=== PATIENT | male | born 1960 | race Caucasian/White ===

== ENCOUNTER 2018-08-14 16:23 | Inpatient (IN) | payer MEDICARE, BC ==
[~2018-08-14] VITALS: Ht 182.9 cm; Wt 66.7 kg
[2018-08-14 16:44] VITALS: BP 123/82
[2018-08-14] MEDS ORDERED: ACETAMINOPHEN 325 MG TABLET PO PRN (17:45)
[2018-08-14] MEDS ORDERED: METHYL SALICYLATE/MENTHOL TOPICAL OINTMENT 29GM TUBE. TP PRN (17:45)
[2018-08-14] MEDS ORDERED: MAG HYDROX/AL HYDROX/SIMETH 30 ML ORAL.SUSP PO PRN (17:45)
[2018-08-14] MEDS ORDERED: DIVA125C2 PO (17:46)
[2018-08-14] MEDS ORDERED: QUET25TA5 PO (17:46)
[2018-08-14] MEDS ORDERED: OLAN5TAB5 PO (17:46)
[2018-08-14] MEDS ORDERED: OLAN5TAB3 PO (17:46)
[2018-08-14] MEDS ORDERED: OLAN2.5T3 PO (17:46)
[2018-08-14] MEDS ORDERED: MEMA10TA PO (17:46)
[2018-08-14] MEDS ORDERED: FLUO40CA2 PO (17:46)
[2018-08-14] MEDS ORDERED: QUEtiapine 25 MG TABLET. PO PRN (18:30)
[2018-08-14] MEDS ORDERED: OLANZapine 2.5 MG TABLET PO PRN (18:30)
[2018-08-14 19:50] LABS: VAL ACID 21 mcg/mL (50-100)
--- NOTE | 2018-08-14 20:58 | HP ---
ADMIT DATE: 08/14/2018 This is a late entry for 08/14/2018 and covers elements not covered in my initial note. REASON FOR ADMISSION: I met with the patient in the evening. Discussed with nursing staff several times earlier in the day after the patient was referred to us from [facility] Emergency Room where he presented, brought in by the family on account of worsening confusion, being physically aggressive with the son and daughter and . has been isolating herself in the home office because he is fearing he might attack her. He was urinating in inappropriate places. There is a [id number] grandson in the home and he has been aggressive with the child as well. He has been defecating on the floor. He was physically aggressive to the home health staff. Symptoms have been worsening for about 2 weeks. He has appeared somewhat obsessive, repetitive, trying to button/unbutton his pants at home, totally disorganized and has failed outpatient psychiatric interventions with Dr. Bui and then referred to us for inpatient psychiatric stabilization. The patient's initially called us directly because the patient was totally unmanageable in the home and she was crying, tearful on the phone. Staff directed her to take the patient to the ER in [place] that where we got in referral from. CHIEF COMPLAINT: "No." The patient is totally confused, disoriented. He is unable to respond to any specific questions asked of him. HISTORY OF PRESENT ILLNESS: The patient has a history of alcohol abuse and dementia, possibly consequent to this and Alzheimer, vascular. Family have attempted to maintain him at home, but for the past couple of weeks, this has been totally unmanageable. He has had sleep and appetite changes, increasing agitation, aggression, mood vacillation. No active suicidal or homicidal ideation. No clear symptoms of bipolar disorder. PAST PSYCHIATRIC HISTORY: As above. MEDICAL HISTORY: Positive for actinic keratosis, adenomatous colon polyp, history of alcohol abuse, former smoker, atherosclerotic cardiovascular disease, atherosclerotic vascular disease, intraorbital hemorrhoids, COPD, emphysema, malignant melanoma of the ankle, mixed hyperlipidemia, panlobular emphysema, Parkinson's disease, vitamin D deficiency. PAST SURGICAL HISTORY: Positive for appendectomy, lymph node dissection, vasectomy. Accu-Cheks: None. Diet: Regular. Takes medications crushed, ambulates independently. UA on 08/13/2018 at his primary care physician's office was negative. ALLERGIES: RAPAFLO. CODE STATUS: DNR. FAMILY HISTORY: Noncontributory. SOCIAL HISTORY: The patient lives at home with his and family and home health services, which have failed. Alcohol abuse history as noted above. No physical, sexual or elder abuse history is noted. Not known to be a perpetrator. REACTION TO HOSPITALIZATION: The patient oblivious of this. ASSETS: Supportive family. MENTAL STATUS EXAMINATION: The patient is oriented to himself. Insight, judgment, recent and remote memory, attention, concentration, fund of knowledge poor, consistent with his diagnosis. He is quite disorganized, oblivious of his surroundings, repeatedly buttoning and unbuttoning his pants, walking away, oblivious of what he was doing. LABORATORY DATA: Reviewed. IMPRESSION: Major neurocognitive disorder, possibly secondary to alcohol and Lewy body, Alzheimer, vascular with delusion, depression, behavioral disturbance; anxiety disorder, unspecified; obsessive compulsive disorder, impulse control disorder, unspecified. Rest unchanged from above. PLAN: Admit to geropsychiatry unit at [facility]. I will see the patient daily individually from a psychiatric standpoint, medical followup with Dr. Gaitan. Continue the patient on his current psychotropics, observe baseline. Change the Prozac to Luvox 25 mg a day for 3 days, then 50 mg a day. Maintain Depakote 125 t.i.d., Namenda 10 b.i.d., Zyprexa 5 mg at bedtime, Seroquel 25 mg t.i.d., but I would like to taper and stop this to avoid using 2 atypicals in combination. He is also on Zyprexa p.r.n. We will adjust further as clinically indicated. Estimated length of stay is 10-12 days. DISPOSITION PLAN: Possible to nursing facility. MELECIO PEREZ MD DR: DIANA/ethan JOB#: [id number] / [id number]
[2018-08-14] MEDS: DIVALPROEX 125 MG CAP.SPRINK PO SCH (21:26)
[2018-08-14] MEDS: OLANZapine 5 MG TABLET PO SCH (21:26)
[2018-08-14] MEDS: MEMANTINE 10 MG TABLET. PO SCH (21:26)
--- NOTE | 2018-08-14 22:20 | PDOC ---
Exam Note: Idris Note: Please also refer to the separate dictated note~for this date of service dictated separately.~Patient seen individually. Discussed the patient with Nursing staff reviewed the chart.~Reviewed interim history and current functioning. Reviewed vital signs,~Labs/ Radiology~and current medications noted below. Continue current treatment with the changes noted in the dictated addendum note Assessment: Vital Signs: Vital Signs Date Time Temp Pulse Resp B/P (MAP) Pulse Ox O2 Delivery O2 Flow Rate FiO2 08/14/18 16:44 98.0 68 18 123/82 (96) 99 Labs: Laboratory Tests Test 08/14/18 19:20 Valproic Acid Level 21 mcg/mL (50-100) L Valproic Acid Last Dose Date 08/14/18 Valproic Acid Last Dose Time 2100 Current Medications: Meds: Current Medications Acetaminophen (Tylenol) 650 mg PRN Q6HRS PRN PO PAIN / TEMP; Start 08/14/18 at 17:45 Multi-Ingredient Ointment (Analgesic [place]) 1 josh PRN QID PRN TP MUSCLE PAIN; Start 08/14/18 at 17:45 Al Hydroxide/Mg Hydroxide (Mylanta Plus Xs) 15 ml PRN AFTMEALHC PRN PO DYSPEPSIA; Start 08/14/18 at 17:45 Magnesium Hydroxide (Milk Of Magnesia) 2,400 mg PRN QHS PRN PO CONSTIPATION; Start 08/14/18 at 17:45 Olanzapine (ZyPREXA ZYDIS) 2.5 mg PRN Q2HR PRN PO ANXIETY / AGITATION 1ST CHOICE; Start 08/14/18 at 18:00 Divalproex Sodium (Depakote Sprinkles) 125 mg TID PO Last administered on at 21:26; Start 08/14/18 at 21:00 Fluoxetine HCl (PROzac) 40 mg DAILY PO ; Start 08/15/18 at 09:00; Stop 08/15/18 at 09:00; Status DC Memantine (Namenda) 10 mg BID PO Last administered on 08/14/18at 21:26; Start 08/14/18 at 21:00 Olanzapine (ZyPREXA) 2.5 mg PRN BID PRN PO PSYCHOSIS/AGITATION; Start 08/14/18 at 18:30 Olanzapine (ZyPREXA) 5 mg QHS PO Last administered on 08/14/18at 21:26; Start 08/14/18 at 21:00 Quetiapine Fumarate (SEROquel) 25 mg PRN TID PRN PO ANXIETY/AGITATION 2ND CHOICE; Start 08/14/18 at 18:30 Fluvoxamine Maleate (Luvox) 25 mg QHS PO Last administered on 08/14/18at 21:24; Start 08/14/18 at 21:00; Stop 08/16/18 at 21:01 Fluvoxamine Maleate (Luvox) 50 mg QHS PO ; Start 08/17/18 at 21:00 Active Scripts Active Reported Zyprexa Zydis (Olanzapine) 5 Mg Tab.rapdis 2.5 Mg PO PRN Q2HR PRN Seroquel (Quetiapine Fumarate) 25 Mg Tablet 1 Tab PO TID PRN Zyprexa (Olanzapine) 2.5 Mg Tablet 1 Tab PO BID PRN Zyprexa (Olanzapine) 5 Mg Tablet 1 Tab PO QHS Namenda (Memantine Hcl) 10 Mg Tablet 1 Tab PO BID Fluoxetine Hcl 40 Mg Capsule 1 Cap PO DAILYWBKFT Depakote Sprinkle (Divalproex Sodium) 125 Mg Cap.sprink 125 Mg PO TID I have reviewed the current psychotropics carefully including drug interactions. Risk benefit ratio favors no change other than as noted in my dictated progress note. Diagnosis: Problems: (1) Anxiety disorder (2) Alcohol-induced persisting dementia (3) Dementia in Alzheimer's disease with delusions (4) Dementia in Alzheimer's disease with depression (5) Dementia, vascular, with delusions (6) Dementia, vascular, with depression (7) Impulse control disorder MELECIO PEREZ MD Aug 14, 2018 22:19
[2018-08-15 05:58] VITALS: BP 121/75
[2018-08-15] MEDS: MEMANTINE 10 MG TABLET. PO SCH ×2 (07:49→19:44)
[2018-08-15] MEDS: DIVALPROEX 125 MG CAP.SPRINK PO SCH ×3 (07:49→19:43)
[2018-08-15 08:22] LABS: BASO % 1 % (0-3); EOS # 0.1 x10^3/uL (0.0-0.7); EOS % 1 % (0-3); HEMATOCRIT 39.8 % (39.0-53.0); LYMPH # 0.7 x10^3/uL (1.0-4.8); LYMPH % 12 % (24-48); MEAN CORPUSCULAR HEMOGLOBIN 29 pg (25-35); MEAN CORPUSCULAR HGB CONC 33 g/dL (31-37); MEAN CORPUSCULAR VOLUME 90 fL (79-100); MONO # 0.7 x10^3/uL (0.0-1.1); MONO % 10 % (0-9); NEUT % 77 % (31-73); PLATELET COUNT 281 x10^3/uL (140-400); RED BLOOD COUNT 4.42 x10^6/uL (4.30-5.70); RED CELL DISTRIBUTION WIDTH 13.4 % (11.5-14.5); WHITE BLOOD COUNT 6.5 x10^3/uL (4.0-11.0)
[2018-08-15 08:39] LABS: ALBUMIN 3.7 g/dL (3.4-5.0); ALBUMIN/GLOBULIN RATIO 1.1 (1.0-1.7); CALCIUM 9.5 mg/dL (8.5-10.1); CREATININE 1.2 mg/dL (0.7-1.3); GFR 61.8; MAGNESIUM 2.1 mg/dL (1.8-2.4); POTASSIUM 3.9 mmol/L (3.5-5.1); TOTAL BILIRUBIN 0.6 mg/dL (0.2-1.0)
[2018-08-15] MEDS ORDERED: FLUoxetine HCL 20 MG CAPSULE PO SCH (09:00)
[2018-08-15 10:13] LABS: THYROID STIM HORMONE (TSH) 2.486 uIU/mL (0.358-3.740)
--- NOTE | 2018-08-15 13:38 | CONS ---
DATE OF CONSULTATION: 08/15/2018 REASON FOR CONSULTATION: Medical management. HISTORY OF PRESENT ILLNESS: The patient is a 58-year-old male patient who was seen originally at [facility] Emergency Room, where he presented with worsening confusion and being physically aggressive with his son, daughter and . has been isolating herself in the home office because she is feeling he might attack her. He was urinating in an inappropriate places. There is a [id number] grandson at the home and he has an aggressive with the child as well, has been defecating on the floor, was aggressive with home health staff. Symptoms have been worsening for about 2 weeks. He seemed somewhat obsessive with repetitive movement trying to button and unbutton his parents at home totally disorganized and has failed outpatient psychiatric intervention with Dr. Bui and therefore, he was [facility]. The patient is extremely demented, very disoriented and disorganized, pacing back and forth in the corridor of the hospital, does not give any useful information. Medically, the patient has multiple medical problems including hypertension and hyperlipidemia. He has malignant melanoma of the ankle, atherosclerotic vascular disease, COPD, and actinic keratosis, adenomatous colon polyps. PAST SURGICAL HISTORY: Significant for appendectomy and lymph node dissection as well as vasectomy. FAMILY HISTORY: Positive for arthritis and vision loss in his mother, asthma and allergy in his brother's, scoliosis in his daughter and ADHD in his son. SOCIAL HISTORY: He is , lives with his . He is a former smoker, used to smoke half-a-pack a day, smoked for 40 years, quit smoking on 05/27/2017. He never used smokeless tobacco. He apparently has a history of alcohol abuse, although apparently stopped drinking for a while since she was diagnosed with dementia. He does not use any drugs. ALLERGIES: HE IS ALLERGIC TO SILODOSIN. MEDICATIONS: He is currently on following medications: He is on divalproex sodium 125 mg 3 times a day, fluoxetine 40 mg daily with breakfast, olanzapine 5 mg at bedtime, olanzapine 2.5 mg twice a day p.r.n. for psychosis, olanzapine 2.5 mg every 2 hours for anxiety and agitation, Quetiapine fumarate 25 mg 3 times a day and Namenda 10 mg twice a day. REVIEW OF SYSTEMS: Unobtainable. PHYSICAL EXAMINATION: GENERAL: On examining him, the patient looked well and was clearly in no apparent respiratory distress. There was no pallor, jaundice, cyanosis, or thyromegaly. No jugular venous distension. No limb edema. VITAL SIGNS: His heart rate was 60, blood pressure was 121/75, temperature was 97.7, respiratory rate was 20, and oxygen saturation was 96%. HEAD, EYES, EARS, NOSE AND THROAT: Showed normocephalic, atraumatic. NECK: Supple. HEART: Showed normal first and second heart sounds. No gallop, rub or murmur. CHEST: Clear to auscultation. No crepitation or rhonchi. ABDOMEN: Distended, soft and nontender. NEUROLOGIC: He is extremely demented, very disorganized; however, all his cranial nerves are intact. EXTREMITIES: He moves extremities without difficulty. He ambulates without assistance or assistive devices. LABORATORY DATA: Showed his white cell count is 6500, hemoglobin 13, hematocrit 39, MCV 90 and platelet count 281,000 with normal manual differential. His chemistry showed a serum sodium 145, potassium 3.9, chloride 108, bicarbonate 26, anion gap of 11, BUN 30, creatinine 1.2, estimated GFR was 62 mL per minute. His glucose was 97, calcium was 9.5, magnesium was 2.1. Serum iron 45, TIBC was 273, iron saturation was 16%. Total bilirubin, AST, ALT, alkaline phosphatase were normal. Total protein 7, albumin 3.7. His serum triglycerides were 43, total cholesterol was 206, LDL cholesterol 142, VLDL was 8, and HDL cholesterol was 56, the ratio was 3 and TSH was 2.486, which is well within therapeutic range and valproic acid was only 21 mcg/mL definitely subtherapeutic as the normal therapeutic range of 50-100. IMPRESSION: In summary, this is a 58-year-old male patient, who obviously was admitted on account of worsening confusion, being physically aggressive with his son, daughter and . His has been isolating herself in the home office because she is feeling he might attack her. He was urinating in inappropriate places and he was also defecating in inappropriate places. He was aggressive to his [id number] grandson and was admitted to this unit for inpatient psychiatric stabilization. Medically, the patient seems to be stable. His vital signs are normal. All his lab works are surprisingly well within normal range. Given that history of alcoholism, I will add prothrombin time and ammonia to check his liver function tests, otherwise he seems to be medically stable. I would continue all his current medication for the time being. I will follow him closely and follow all the labs that are still pending at the time of this dictation. Thank you, Dr. Kilgore for allowing me to participate in the care of this patient. GINA DAWSON MD DR: ISATU/ethan JOB#: [id number] / [id number]
[2018-08-15 15:58] VITALS: BP 125/74
[2018-08-15] MEDS: OLANZapine 5 MG TABLET PO SCH (19:44)
[2018-08-15] MEDS: traZODone 50 MG TABLET. PO PRN (19:45)
[2018-08-15] MEDS: MIRTAZAPINE 7.5 MG TABLET. PO SCH (19:45)
--- NOTE | 2018-08-15 22:22 | PDOC ---
Exam Note: Idris Note: Please also refer to the separate dictated note~for this date of service dictated separately.~Patient seen individually. Discussed the patient with Nursing staff reviewed the chart.~Reviewed interim history and current functioning. Reviewed vital signs,~Labs/ Radiology~and current medications noted below. Continue current treatment with the changes noted in the dictated addendum note Assessment: Vital Signs: Vital Signs Date Time Temp Pulse Resp B/P (MAP) Pulse Ox O2 Delivery O2 Flow Rate FiO2 08/15/18 15:58 98.7 78 20 125/74 (91) 98 Room Air I&O Intake and Output 08/15/18 07:01 Intake Total 360 ml Balance 360 ml Intake Oral 360 ml Labs: Laboratory Tests Test 08/15/18 08:08 White Blood Count 6.5 x10^3/uL (4.0-11.0) Red Blood Count 4.42 x10^6/uL (4.30-5.70) Hemoglobin 13.0 g/dL (13.0-17.5) Hematocrit 39.8 % (39.0-53.0) Mean Corpuscular Volume 90 fL (79-100) Mean Corpuscular Hemoglobin 29 pg (25-35) Mean Corpuscular Hemoglobin Concent 33 g/dL (31-37) Red Cell Distribution Width 13.4 % (11.5-14.5) Platelet Count 281 x10^3/uL (140-400) Neutrophils (%) (Auto) 77 % (31-73) H Lymphocytes (%) (Auto) 12 % (24-48) L Monocytes (%) (Auto) 10 % (0-9) H Eosinophils (%) (Auto) 1 % (0-3) Basophils (%) (Auto) 1 % (0-3) Neutrophils # (Auto) 5.0 x10^3uL (1.8-7.7) Lymphocytes # (Auto) 0.7 x10^3/uL (1.0-4.8) L Monocytes # (Auto) 0.7 x10^3/uL (0.0-1.1) Eosinophils # (Auto) 0.1 x10^3/uL (0.0-0.7) Basophils # (Auto) 0.0 x10^3/uL (0.0-0.2) Sodium Level 145 mmol/L (136-145) Potassium Level 3.9 mmol/L (3.5-5.1) Chloride Level 108 mmol/L (98-107) H Carbon Dioxide Level 26 mmol/L (21-32) Anion Gap 11 (6-14) Blood Urea Nitrogen 30 mg/dL (8-26) H Creatinine 1.2 mg/dL (0.7-1.3) Estimated GFR (Cockcroft-Gault) 61.8 BUN/Creatinine Ratio 25 (6-20) H Glucose Level 97 mg/dL (70-99) Calcium Level 9.5 mg/dL (8.5-10.1) Magnesium Level 2.1 mg/dL (1.8-2.4) Iron Level 45 ug/dL (65-175) L Total Iron Binding Capacity 273 ug/dL (250-450) Iron Saturation 16 % (15-34) Total Bilirubin 0.6 mg/dL (0.2-1.0) Aspartate Amino Transferase (AST) 32 U/L (15-37) Alanine Aminotransferase (ALT) 39 U/L (16-63) Alkaline Phosphatase 52 U/L (46-116) Total Protein 7.0 g/dL (6.4-8.2) Albumin 3.7 g/dL (3.4-5.0) Albumin/Globulin Ratio 1.1 (1.0-1.7) Triglycerides Level 43 mg/dL (0-150) Cholesterol Level 206 mg/dL (0-200) H LDL Cholesterol, Calculated 142 mg/dL (0-100) H VLDL Cholesterol, Calculated 8 mg/dL (0-40) Non-HDL Cholesterol Calculated 150 mg/dL (0-129) H HDL Cholesterol 56 mg/dL (40-60) Cholesterol/HDL Ratio 3.0 Thyroid Stimulating Hormone (TSH) 2.486 uIU/mL (0.358-3.740) Thyroxine (T4) 4.0 ug/dL (4.5-12.0) L Total Triiodothyronine (TT3) 78 ng/dL (71-180) Current Medications: Meds: Current Medications Acetaminophen (Tylenol) 650 mg PRN Q6HRS PRN PO PAIN / TEMP; Start 08/14/18 at 17:45 Multi-Ingredient Ointment (Analgesic [place]) 1 josh PRN QID PRN TP MUSCLE PAIN; Start 08/14/18 at 17:45 Al Hydroxide/Mg Hydroxide (Mylanta Plus Xs) 15 ml PRN AFTMEALHC PRN PO DYSPEPSIA; Start 08/14/18 at 17:45 Magnesium Hydroxide (Milk Of Magnesia) 2,400 mg PRN QHS PRN PO CONSTIPATION; Start 08/14/18 at 17:45 Olanzapine (ZyPREXA ZYDIS) 2.5 mg PRN Q2HR PRN PO ANXIETY / AGITATION 1ST CHOICE Last administered on 08/15/18 10:11; Start 08/14/18 at 18:00 Divalproex Sodium (Depakote Sprinkles) 125 mg TID PO Last administered on 19:43; Start 08/14/18 at 21:00 Fluoxetine HCl (PROzac) 40 mg DAILY PO ; Start 08/15/18 at 09:00; Stop 08/15/18 at 09:00; Status DC Memantine (Namenda) 10 mg BID PO Last administered on 08/15/18 19:44; Start 08/14/18 at 21:00 Olanzapine (ZyPREXA) 2.5 mg PRN BID PRN PO PSYCHOSIS/AGITATION; Start 08/14/18 at 18:30 Olanzapine (ZyPREXA) 5 mg QHS PO Last administered on 08/15/18 19:44; Start 08/14/18 at 21:00 Quetiapine Fumarate (SEROquel) 25 mg PRN TID PRN PO ANXIETY/AGITATION 2ND CHOICE; Start 08/14/18 at 18:30 Fluvoxamine Maleate (Luvox) 25 mg QHS PO Last administered on 08/15/18 20:07; Start 08/14/18 at 21:00; Stop 08/16/18 at 21:01 Fluvoxamine Maleate (Luvox) 50 mg QHS PO ; Start 08/17/18 at 21:00 Mirtazapine (Remeron) 7.5 mg QHS PO Last administered on 08/15/18 19:45; Start 08/15/18 at 21:00 Trazodone HCl (Desyrel) 50 mg PRN QHS PRN PO INSOMNIA, MAY REPEAT X1 Last administered on 08/15/18 19:45; Start 2/3/19 at 19:00 Active Scripts Active Reported Zyprexa Zydis (Olanzapine) 5 Mg Tab.rapdis 2.5 Mg PO PRN Q2HR PRN Seroquel (Quetiapine Fumarate) 25 Mg Tablet 1 Tab PO TID PRN Zyprexa (Olanzapine) 2.5 Mg Tablet 1 Tab PO BID PRN Zyprexa (Olanzapine) 5 Mg Tablet 1 Tab PO QHS Namenda (Memantine Hcl) 10 Mg Tablet 1 Tab PO BID Fluoxetine Hcl 40 Mg Capsule 1 Cap PO DAILYWBKFT Depakote Sprinkle (Divalproex Sodium) 125 Mg Cap.sprink 125 Mg PO TID I have reviewed the current psychotropics carefully including drug interactions. Risk benefit ratio favors no change other than as noted in my dictated progress note. Diagnosis: Problems: (1) Anxiety disorder (2) Alcohol-induced persisting dementia (3) Dementia in Alzheimer's disease with delusions (4) Dementia in Alzheimer's disease with depression (5) Dementia, vascular, with delusions (6) Dementia, vascular, with depression (7) Impulse control disorder MELECIO PEREZ MD Aug 15, 2018 22:21
[2018-08-15 23:09] LABS: HEMOGLOBIN A1C 5.5 % (4.8-5.6)
[2018-08-16] MEDS: traZODone 50 MG TABLET. PO PRN (00:20)
[2018-08-16 06:05] VITALS: BP 90/60
[2018-08-16] MEDS: DIVALPROEX 125 MG CAP.SPRINK PO SCH ×3 (07:40→21:21)
[2018-08-16] MEDS: MEMANTINE 10 MG TABLET. PO SCH ×2 (07:40→21:27)
[2018-08-16] MEDS: MIRTAZAPINE 7.5 MG TABLET. PO SCH (21:20)
[2018-08-16] MEDS: OLANZapine 5 MG TABLET PO SCH (21:20)
--- NOTE | 2018-08-16 22:26 | PN ---
DATE: 08/15/2018 This late entry for 08/15/2018 covers elements not covered in my initial note. SUBJECTIVE: I met with the patient in the evening. Overall, the patient remains confused, did not sleep at all previous night, has been pacing, wandering into other patient's rooms. REVIEW OF SYSTEMS: No CV, , pulmonary, eye, ENT system symptoms on review. Reliability poor. MENTAL STATUS EXAM: Oriented to himself. Insight, judgment, recent and remote memory, attention, concentration, fund of knowledge poor, consistent with his diagnosis. IMPRESSION: Major neurocognitive disorder, multifactorial secondary to alcohol, possibly Lewy body, Alzheimer, vascular with delusion, depression, behavioral disturbance; anxiety disorder, unspecified; impulse control disorder, unspecified. PLAN: Start Remeron 7.5 mg at bedtime, trazodone 50 mg at bedtime, november repeat x 1 for insomnia p.r.n. Maintain Depakote, Prozac, Namenda, Zyprexa scheduled and p.r.n. and Seroquel at current dosage. Prozac has been changed to Luvox for his obsessive thought processes. We will adjust as clinically indicated. MELECIO PEREZ MD DR: DIANA/ethan JOB#: [id number] / [id number]
--- NOTE | 2018-08-16 22:28 | PDOC ---
Exam Note: Idris Note: Please also refer to the separate dictated note~for this date of service dictated separately.~Patient seen individually. Discussed the patient with Nursing staff reviewed the chart.~Reviewed interim history and current functioning. Reviewed vital signs,~Labs/ Radiology~and current medications noted below. Continue current treatment with the changes noted in the dictated addendum note Assessment: Vital Signs: Vital Signs Date Time Temp Pulse Resp B/P (MAP) Pulse Ox O2 Delivery O2 Flow Rate FiO2 08/16/18 06:05 97.6 86 18 90/60 (70) 96 08/15/18 15:58 Room Air I&O Intake and Output 08/16/18 07:01 Intake Total 840 ml Balance 840 ml Intake Oral 840 ml Labs: Laboratory Tests Test 08/16/18 13:15 Prothrombin Time 10.3 SEC (9.4-11.4) Prothrombin Time INR 1.0 (0.9-1.1) Ammonia 29 mcmol/L (11-34) Current Medications: Meds: Current Medications Acetaminophen (Tylenol) 650 mg PRN Q6HRS PRN PO PAIN / TEMP; Start 08/14/18 at 17:45 Multi-Ingredient Ointment (Analgesic [place]) 1 josh PRN QID PRN TP MUSCLE PAIN; Start 08/14/18 at 17:45 Al Hydroxide/Mg Hydroxide (Mylanta Plus Xs) 15 ml PRN AFTMEALHC PRN PO DYSPEPSIA; Start 08/14/18 at 17:45 Magnesium Hydroxide (Milk Of Magnesia) 2,400 mg PRN QHS PRN PO CONSTIPATION; Start 08/14/18 at 17:45 Olanzapine (ZyPREXA ZYDIS) 2.5 mg PRN Q2HR PRN PO ANXIETY / AGITATION 1ST CHOICE Last administered on 08/15/18at 23:23; Start 08/14/18 at 18:00 Divalproex Sodium (Depakote Sprinkles) 125 mg TID PO Last administered on at 13:57; Start 08/14/18 at 21:00; Stop 08/16/18 at 16:47; Status DC Fluoxetine HCl (PROzac) 40 mg DAILY PO ; Start 08/15/18 at 09:00; Stop 08/15/18 at 09:00; Status DC Memantine (Namenda) 10 mg BID PO Last administered on 08/16/18at 21:27; Start 08/14/18 at 21:00 Olanzapine (ZyPREXA) 2.5 mg PRN BID PRN PO PSYCHOSIS/AGITATION; Start 08/14/18 at 18:30 Olanzapine (ZyPREXA) 5 mg QHS PO Last administered on 08/16/18at 21:20; Start 08/14/18 at 21:00 Quetiapine Fumarate (SEROquel) 25 mg PRN TID PRN PO ANXIETY/AGITATION 2ND CHOICE; Start 08/14/18 at 18:30 Fluvoxamine Maleate (Luvox) 25 mg QHS PO Last administered on 08/16/18at 21:20; Start 08/14/18 at 21:00; Stop 08/16/18 at 21:01; Status DC Fluvoxamine Maleate (Luvox) 50 mg QHS PO ; Start 08/17/18 at 21:00 Mirtazapine (Remeron) 7.5 mg QHS PO Last administered on 08/16/18at 21:20; Start 08/15/18 at 21:00 Trazodone HCl (Desyrel) 50 mg PRN QHS PRN PO INSOMNIA, MAY REPEAT X1 Last administered on 08/16/18at 00:20; Start 08/15/18 at 19:00 Divalproex Sodium (Depakote Sprinkles) 250 mg BIDWMEALS PO ; Start 08/17/18 at 08 :00 Active Scripts Active Reported Zyprexa Zydis (Olanzapine) 5 Mg Tab.rapdis 2.5 Mg PO PRN Q2HR PRN Seroquel (Quetiapine Fumarate) 25 Mg Tablet 1 Tab PO TID PRN Zyprexa (Olanzapine) 2.5 Mg Tablet 1 Tab PO BID PRN Zyprexa (Olanzapine) 5 Mg Tablet 1 Tab PO QHS Namenda (Memantine Hcl) 10 Mg Tablet 1 Tab PO BID Fluoxetine Hcl 40 Mg Capsule 1 Cap PO DAILYWBKFT Depakote Sprinkle (Divalproex Sodium) 125 Mg Cap.sprink 125 Mg PO TID I have reviewed the current psychotropics carefully including drug interactions. Risk benefit ratio favors no change other than as noted in my dictated progress note. Diagnosis: Problems: (1) Anxiety disorder (2) Alcohol-induced persisting dementia (3) Dementia in Alzheimer's disease with delusions (4) Dementia in Alzheimer's disease with depression (5) Dementia, vascular, with delusions (6) Dementia, vascular, with depression (7) Impulse control disorder MELECIO PEREZ MD Aug 16, 2018 22:28
[2018-08-17 06:11] VITALS: BP 102/51
[2018-08-17] MEDS: DIVALPROEX 125 MG CAP.SPRINK PO SCH ×2 (07:54→17:49)
[2018-08-17] MEDS: MEMANTINE 10 MG TABLET. PO SCH ×2 (07:55→20:09)
[2018-08-17] MEDS: MAGNESIUM HYDROXIDE 2,400 MG/30 ML ORAL.SUSP. PO PRN (16:33)
[2018-08-17] MEDS: MIRTAZAPINE 7.5 MG TABLET. PO SCH (20:09)
[2018-08-17] MEDS: OLANZapine 5 MG TABLET PO SCH (20:09)
--- NOTE | 2018-08-17 22:39 | PDOC ---
Exam Note: Idris Note: Please also refer to the separate dictated note~for this date of service dictated separately.~Patient seen individually. Discussed the patient with Nursing staff reviewed the chart.~Reviewed interim history and current functioning. Reviewed vital signs,~Labs/ Radiology~and current medications noted below. Continue current treatment with the changes noted in the dictated addendum note Assessment: Vital Signs: Vital Signs Date Time Temp Pulse Resp B/P (MAP) Pulse Ox O2 Delivery O2 Flow Rate FiO2 08/17/18 06:11 97.4 52 20 102/51 (68) 95 08/16/18 21:00 Room Air I&O Intake and Output 08/17/18 07:01 Intake Total 120 ml Balance 120 ml Intake Oral 120 ml Current Medications: Meds: Current Medications Acetaminophen (Tylenol) 650 mg PRN Q6HRS PRN PO PAIN / TEMP; Start 08/14/18 at 17:45 Multi-Ingredient Ointment (Analgesic [place]) 1 josh PRN QID PRN TP MUSCLE PAIN; Start 08/14/18 at 17:45 Al Hydroxide/Mg Hydroxide (Mylanta Plus Xs) 15 ml PRN AFTMEALHC PRN PO DYSPEPSIA; Start 08/14/18 at 17:45 Magnesium Hydroxide (Milk Of Magnesia) 2,400 mg PRN QHS PRN PO CONSTIPATION Last administered on 08/17/18at 16:33; Start 08/14/18 at 17:45 Olanzapine (ZyPREXA ZYDIS) 2.5 mg PRN Q2HR PRN PO ANXIETY / AGITATION 1ST CHOICE Last administered on 08/17/18at 14:10; Start 08/14/18 at 18:00 Divalproex Sodium (Depakote Sprinkles) 125 mg TID PO Last administered on at 13:57; Start 08/14/18 at 21:00; Stop 08/16/18 at 16:47; Status DC Fluoxetine HCl (PROzac) 40 mg DAILY PO ; Start 08/15/18 at 09:00; Stop 08/15/18 at 09:00; Status DC Memantine (Namenda) 10 mg BID PO Last administered on 08/17/18at 20:09; Start 08/14/18 at 21:00 Olanzapine (ZyPREXA) 2.5 mg PRN BID PRN PO PSYCHOSIS/AGITATION; Start 08/14/18 at 18:30 Olanzapine (ZyPREXA) 5 mg QHS PO Last administered on 08/17/18 20:09; Start 08/14/18 at 21:00 Quetiapine Fumarate (SEROquel) 25 mg PRN TID PRN PO ANXIETY/AGITATION 2ND CHOICE Last administered on 08/16/18 23:53; Start 08/14/18 at 18:30 Fluvoxamine Maleate (Luvox) 25 mg QHS PO Last administered on 08/16/18 21:20; Start 08/14/18 at 21:00; Stop 08/16/18 at 21:01; Status DC Fluvoxamine Maleate (Luvox) 50 mg QHS PO Last administered on 08/17/18 20:13; Start 08/17/18 at 21:00 Mirtazapine (Remeron) 7.5 mg QHS PO Last administered on 08/17/18 20:09; Start 08/15/18 at 21:00 Trazodone HCl (Desyrel) 50 mg PRN QHS PRN PO INSOMNIA, MAY REPEAT X1 Last administered on 08/16/18 00:20; Start 08/15/18 at 19:00 Divalproex Sodium (Depakote Sprinkles) 250 mg BIDWMEALS PO Last administered on 08/17/18 17:49; Start 08/17/18 at 08:00 Active Scripts Active Reported Zyprexa Zydis (Olanzapine) 5 Mg Tab.rapdis 2.5 Mg PO PRN Q2HR PRN Seroquel (Quetiapine Fumarate) 25 Mg Tablet 1 Tab PO TID PRN Zyprexa (Olanzapine) 2.5 Mg Tablet 1 Tab PO BID PRN Zyprexa (Olanzapine) 5 Mg Tablet 1 Tab PO QHS Namenda (Memantine Hcl) 10 Mg Tablet 1 Tab PO BID Fluoxetine Hcl 40 Mg Capsule 1 Cap PO DAILYWBKFT Depakote Sprinkle (Divalproex Sodium) 125 Mg Cap.sprink 125 Mg PO TID I have reviewed the current psychotropics carefully including drug interactions. Risk benefit ratio favors no change other than as noted in my dictated progress note. Diagnosis: Problems: (1) Anxiety disorder (2) Alcohol-induced persisting dementia (3) Dementia in Alzheimer's disease with delusions (4) Dementia in Alzheimer's disease with depression (5) Dementia, vascular, with delusions (6) Dementia, vascular, with depression (7) Impulse control disorder MELECIO PEREZ MD Aug 17, 2018 22:39
--- NOTE | 2018-08-17 23:27 | PN ---
DATE: 08/16/2018 This late entry for 08/16/2018 covers elements not covered in my initial note. SUBJECTIVE: I met with the patient in the evening. The patient slept just 2-1/4 hours previous night. He received trazodone and Remeron previous night and despite this, did not sleep well. He has been restless, disorganized, walking into other patient's rooms, confused, combative with cares. Valproic acid level is 21, subtherapeutic. REVIEW OF SYSTEMS: No CV, , pulmonary, eye, ENT system symptoms on review. Reliability poor. MENTAL STATUS EXAM: Oriented to himself. Insight, judgment, recent and remote memory, attention, concentration, fund of knowledge poor, consistent with his diagnosis mentioned in my initial note. PLAN: Increase Depakote from 125 mg t.i.d. to 250 a.m. and p.m. Check CBC, CMP, valproic acid level in 3 days. Continue rest unchanged. MELECIO PEREZ MD DR: DIANA/ethan JOB#: [id number] / [id number]
[2018-08-18 05:47] VITALS: BP 115/67
[2018-08-18] MEDS: DIVALPROEX 125 MG CAP.SPRINK PO SCH ×2 (08:28→16:13)
[2018-08-18] MEDS: MEMANTINE 10 MG TABLET. PO SCH ×2 (08:28→20:24)
[2018-08-18 15:59] VITALS: BP 135/60
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
[2018-08-18] MEDS: OLANZapine 5 MG TABLET PO SCH (20:24)
[2018-08-18] MEDS: MIRTAZAPINE 15 MG TABLET PO SCH (20:26)
--- NOTE | 2018-08-18 22:26 | PDOC ---
Exam Note: Idris Note: Please also refer to the separate dictated note~for this date of service dictated separately.~Patient seen individually. Discussed the patient with Nursing staff reviewed the chart.~Reviewed interim history and current functioning. Reviewed vital signs,~Labs/ Radiology~and current medications noted below. Continue current treatment with the changes noted in the dictated addendum note Assessment: Vital Signs: Vital Signs Date Time Temp Pulse Resp B/P (MAP) Pulse Ox O2 Delivery O2 Flow Rate FiO2 08/18/18 15:59 97.0 68 18 135/60 (85) 98 08/16/18 21:00 Room Air I&O Intake and Output 08/18/18 07:01 Intake Total 360 ml Balance 360 ml Intake Oral 360 ml # Voids 1 Current Medications: Meds: Current Medications Acetaminophen (Tylenol) 650 mg PRN Q6HRS PRN PO PAIN / TEMP; Start 08/14/18 at 17:45 Multi-Ingredient Ointment (Analgesic [place]) 1 josh PRN QID PRN TP MUSCLE PAIN; Start 08/14/18 at 17:45 Al Hydroxide/Mg Hydroxide (Mylanta Plus Xs) 15 ml PRN AFTMEALHC PRN PO DYSPEPSIA; Start 08/14/18 at 17:45 Magnesium Hydroxide (Milk Of Magnesia) 2,400 mg PRN QHS PRN PO CONSTIPATION Last administered on 08/17/18at 16:33; Start 08/14/18 at 17:45 Olanzapine (ZyPREXA ZYDIS) 2.5 mg PRN Q2HR PRN PO ANXIETY / AGITATION 1ST CHOICE Last administered on 08/18/18at 17:27; Start 08/14/18 at 18:00 Divalproex Sodium (Depakote Sprinkles) 125 mg TID PO Last administered on at 13:57; Start 08/14/18 at 21:00; Stop 08/16/18 at 16:47; Status DC Fluoxetine HCl (PROzac) 40 mg DAILY PO ; Start 08/15/18 at 09:00; Stop 08/15/18 at 09:00; Status DC Memantine (Namenda) 10 mg BID PO Last administered on 08/18/18at 20:24; Start 08/14/18 at 21:00 Olanzapine (ZyPREXA) 2.5 mg PRN BID PRN PO PSYCHOSIS/AGITATION; Start 08/14/18 at 18:30 Olanzapine (ZyPREXA) 5 mg QHS PO Last administered on 08/18/18 20:24; Start 08/14/18 at 21:00 Quetiapine Fumarate (SEROquel) 25 mg PRN TID PRN PO ANXIETY/AGITATION 2ND CHOICE Last administered on 08/16/18 23:53; Start 08/14/18 at 18:30 Fluvoxamine Maleate (Luvox) 25 mg QHS PO Last administered on 08/16/18 21:20; Start 08/14/18 at 21:00; Stop 08/16/18 at 21:01; Status DC Fluvoxamine Maleate (Luvox) 50 mg QHS PO Last administered on 08/18/18 20:24; Start 08/17/18 at 21:00 Mirtazapine (Remeron) 7.5 mg QHS PO Last administered on 08/17/18 20:09; Start 08/15/18 at 21:00; Stop 08/18/18 at 14:31; Status DC Trazodone HCl (Desyrel) 50 mg PRN QHS PRN PO INSOMNIA, MAY REPEAT X1 Last administered on 08/16/18 00:20; Start 08/15/18 at 19:00 Divalproex Sodium (Depakote Sprinkles) 250 mg BIDWMEALS PO Last administered on 08/18/18 16:13; Start 08/17/18 at 08:00 Mirtazapine (Remeron) 15 mg QHS PO Last administered on 08/18/18 20:26; Start 08/18/18 at 21:00 Active Scripts Active Reported Zyprexa Zydis (Olanzapine) 5 Mg Tab.rapdis 2.5 Mg PO PRN Q2HR PRN Seroquel (Quetiapine Fumarate) 25 Mg Tablet 1 Tab PO TID PRN Zyprexa (Olanzapine) 2.5 Mg Tablet 1 Tab PO BID PRN Zyprexa (Olanzapine) 5 Mg Tablet 1 Tab PO QHS Namenda (Memantine Hcl) 10 Mg Tablet 1 Tab PO BID Fluoxetine Hcl 40 Mg Capsule 1 Cap PO DAILYWBKFT Depakote Sprinkle (Divalproex Sodium) 125 Mg Cap.sprink 125 Mg PO TID I have reviewed the current psychotropics carefully including drug interactions. Risk benefit ratio favors no change other than as noted in my dictated progress note. Diagnosis: Problems: (1) Anxiety disorder (2) Alcohol-induced persisting dementia (3) Dementia in Alzheimer's disease with delusions (4) Dementia in Alzheimer's disease with depression (5) Dementia, vascular, with delusions (6) Dementia, vascular, with depression (7) Impulse control disorder MELECIO PEREZ MD Aug 18, 2018 22:26
[2018-08-19 06:33] VITALS: BP 146/82
[2018-08-19] MEDS: MEMANTINE 10 MG TABLET. PO SCH ×2 (08:01→19:28)
[2018-08-19] MEDS: DIVALPROEX 125 MG CAP.SPRINK PO SCH ×2 (08:01→17:28)
[2018-08-19] MEDS: MAGNESIUM HYDROXIDE 2,400 MG/30 ML ORAL.SUSP. PO PRN (08:56)
[2018-08-19 17:18] VITALS: BP 129/76
[2018-08-19] MEDS: MIRTAZAPINE 15 MG TABLET PO SCH (19:27)
[2018-08-19] MEDS: OLANZapine 5 MG TABLET PO SCH (19:28)
--- NOTE | 2018-08-19 20:22 | PN ---
DATE: 08/18/2018 This late entry for 08/18/2018 covers elements not covered in my initial note. SUBJECTIVE: I met with the patient in the evening and staffed at a treatment team meeting with the entire team earlier in the day with the patient's daughter, Henok and Kim attended. Reviewed the patient's history, diagnosis. Family desire to consider hospice and discussed all of this at length. The patient slept a little better previous night 3-1/4 hours with an average of 1-1/4 hours prior to that. Appetite 65%. He puts himself on the floor at times. REVIEW OF SYSTEMS: No CV, , pulmonary, eye, ENT system symptoms on review. Reliability poor. MENTAL STATUS EXAM: Oriented to himself. Insight, judgment, recent and remote memory, attention, concentration, fund of knowledge poor, consistent with his diagnosis mentioned in my initial note. PLAN: Increase Remeron from 7.5 mg at bedtime to 15 mg at bedtime. Rest unchanged from initial note. Discussed other options and later in the day discussed the patient with Dr. Gaitan as well, who was in agreement for hospice care. MELECIO PEREZ MD DR: DIANA/ethan JOB#: [id number] / [id number]
--- NOTE | 2018-08-19 22:23 | PDOC ---
Exam Note: Idris Note: Please also refer to the separate dictated note~for this date of service dictated separately.~Patient seen individually. Discussed the patient with Nursing staff reviewed the chart.~Reviewed interim history and current functioning. Reviewed vital signs,~Labs/ Radiology~and current medications noted below. Continue current treatment with the changes noted in the dictated addendum note Assessment: Vital Signs: Vital Signs Date Time Temp Pulse Resp B/P (MAP) Pulse Ox O2 Delivery O2 Flow Rate FiO2 08/19/18 17:18 98.1 83 18 129/76 (93) 97 08/16/18 21:00 Room Air I&O Intake and Output 08/19/18 07:01 Intake Total 120 ml Balance 120 ml Intake Oral 120 ml # Voids 1 Current Medications: Meds: Current Medications Acetaminophen (Tylenol) 650 mg PRN Q6HRS PRN PO PAIN / TEMP; Start 08/14/18 at 17:45 Multi-Ingredient Ointment (Analgesic [place]) 1 josh PRN QID PRN TP MUSCLE PAIN; Start 08/14/18 at 17:45 Al Hydroxide/Mg Hydroxide (Mylanta Plus Xs) 15 ml PRN AFTMEALHC PRN PO DYSPEPSIA; Start 08/14/18 at 17:45 Magnesium Hydroxide (Milk Of Magnesia) 2,400 mg PRN QHS PRN PO CONSTIPATION Last administered on 08/19/18at 08:56; Start 08/14/18 at 17:45 Olanzapine (ZyPREXA ZYDIS) 2.5 mg PRN Q2HR PRN PO ANXIETY / AGITATION 1ST CHOICE Last administered on 08/18/18at 17:27; Start 08/14/18 at 18:00 Divalproex Sodium (Depakote Sprinkles) 125 mg TID PO Last administered on at 13:57; Start 08/14/18 at 21:00; Stop 08/16/18 at 16:47; Status DC Fluoxetine HCl (PROzac) 40 mg DAILY PO ; Start 08/15/18 at 09:00; Stop 08/15/18 at 09:00; Status DC Memantine (Namenda) 10 mg BID PO Last administered on 08/19/18at 19:28; Start 08/14/18 at 21:00 Olanzapine (ZyPREXA) 2.5 mg PRN BID PRN PO PSYCHOSIS/AGITATION; Start 08/14/18 at 18:30 Olanzapine (ZyPREXA) 5 mg QHS PO Last administered on 08/19/18 19:28; Start 08/14/18 at 21:00 Quetiapine Fumarate (SEROquel) 25 mg PRN TID PRN PO ANXIETY/AGITATION 2ND CHOICE Last administered on 08/16/18 23:53; Start 08/14/18 at 18:30 Fluvoxamine Maleate (Luvox) 25 mg QHS PO Last administered on 08/16/18 21:20; Start 08/14/18 at 21:00; Stop 08/16/18 at 21:01; Status DC Fluvoxamine Maleate (Luvox) 50 mg QHS PO Last administered on 08/19/18 19:27; Start 08/17/18 at 21:00 Mirtazapine (Remeron) 7.5 mg QHS PO Last administered on 08/17/18 20:09; Start 08/15/18 at 21:00; Stop 08/18/18 at 14:31; Status DC Trazodone HCl (Desyrel) 50 mg PRN QHS PRN PO INSOMNIA, MAY REPEAT X1 Last administered on 08/16/18 00:20; Start 08/15/18 at 19:00 Divalproex Sodium (Depakote Sprinkles) 250 mg BIDWMEALS PO Last administered on 08/19/18 17:28; Start 08/17/18 at 08:00 Mirtazapine (Remeron) 15 mg QHS PO Last administered on 08/19/18 19:27; Start 08/18/18 at 21:00 Buspirone HCl (Buspar) 5 mg 0900,1700 PO ; Start 08/20/18 at 09:00 Active Scripts Active Reported Zyprexa Zydis (Olanzapine) 5 Mg Tab.rapdis 2.5 Mg PO PRN Q2HR PRN Seroquel (Quetiapine Fumarate) 25 Mg Tablet 1 Tab PO TID PRN Zyprexa (Olanzapine) 2.5 Mg Tablet 1 Tab PO BID PRN Zyprexa (Olanzapine) 5 Mg Tablet 1 Tab PO QHS Namenda (Memantine Hcl) 10 Mg Tablet 1 Tab PO BID Fluoxetine Hcl 40 Mg Capsule 1 Cap PO DAILYWBKFT Depakote Sprinkle (Divalproex Sodium) 125 Mg Cap.sprink 125 Mg PO TID I have reviewed the current psychotropics carefully including drug interactions. Risk benefit ratio favors no change other than as noted in my dictated progress note. Diagnosis: Problems: (1) Anxiety disorder (2) Alcohol-induced persisting dementia (3) Dementia in Alzheimer's disease with delusions (4) Dementia in Alzheimer's disease with depression (5) Dementia, vascular, with delusions (6) Dementia, vascular, with depression (7) Impulse control disorder MELECIO PEREZ MD Aug 19, 2018 22:22
[2018-08-20 05:48] VITALS: BP 121/65
[2018-08-20 07:51] LABS: BASO % 1 % (0-3); EOS # 0.2 x10^3/uL (0.0-0.7); EOS % 3 % (0-3); HEMATOCRIT 44.1 % (39.0-53.0); HEMOGLOBIN 14.4 g/dL (13.0-17.5); LYMPH # 0.9 x10^3/uL (1.0-4.8); LYMPH % 15 % (24-48); MEAN CORPUSCULAR HEMOGLOBIN 30 pg (25-35); MEAN CORPUSCULAR HGB CONC 33 g/dL (31-37); MEAN CORPUSCULAR VOLUME 92 fL (79-100); MONO # 0.7 x10^3/uL (0.0-1.1); MONO % 11 % (0-9); NEUT # 4.5 x10^3uL (1.8-7.7); NEUT % 72 % (31-73); PLATELET COUNT 292 x10^3/uL (140-400); RED BLOOD COUNT 4.77 x10^6/uL (4.30-5.70); RED CELL DISTRIBUTION WIDTH 13.5 % (11.5-14.5); WHITE BLOOD COUNT 6.2 x10^3/uL (4.0-11.0)
[2018-08-20 08:06] LABS: ALBUMIN 3.6 g/dL (3.4-5.0); ALK PHOS 56 U/L (46-116); ALT (SGPT) 174 U/L (16-63); ANION GAP 6 (6-14); AST (SGOT) 141 U/L (15-37); BLOOD UREA NITROGEN 39 mg/dL (8-26); BUN/CREATININE RATIO 28 (6-20); CALCIUM 9.6 mg/dL (8.5-10.1); CARBON DIOXIDE 35 mmol/L (21-32); CHLORIDE 116 mmol/L (98-107); CREATININE 1.4 mg/dL (0.7-1.3); GFR 51.7; GLUCOSE 94 mg/dL (70-99); POTASSIUM 4.2 mmol/L (3.5-5.1); SODIUM 157 mmol/L (136-145); TOTAL BILIRUBIN 0.8 mg/dL (0.2-1.0); TOTAL PROTEIN 7.2 g/dL (6.4-8.2)
[2018-08-20 08:09] LABS: VAL ACID 30 mcg/mL (50-100)
[2018-08-20] MEDS: MEMANTINE 10 MG TABLET. PO SCH ×3 (08:15→19:55)
[2018-08-20] MEDS: DIVALPROEX 125 MG CAP.SPRINK PO SCH ×3 (08:16→17:20)
[2018-08-20] MEDS: busPIRone 5 MG TABLET. PO SCH ×3 (08:16→17:22)
[2018-08-20 16:25] VITALS: BP 104/87
[2018-08-20] MEDS: MIRTAZAPINE 15 MG TABLET PO SCH (19:55)
[2018-08-20] MEDS: OLANZapine 5 MG TABLET PO SCH (19:56)
[2018-08-20] MEDS: DOCUSATE 100 MG/10 ML SOLUTION. PO SCH (19:57)
[2018-08-20] MEDS: traZODone 50 MG TABLET. PO PRN (20:27)
--- NOTE | 2018-08-20 20:33 | PN ---
DATE: 08/19/2018 This late entry for 08/19/2018 covers elements not covered in my initial note. SUBJECTIVE: I met with the patient in the evening. The patient slept 4-1/4 hours previous night. He remains somewhat intrusive and intermittently hallucinating, had to be placed in the [place] much of the day, disorganized. REVIEW OF SYSTEMS: No CV, , pulmonary, eye, ENT system symptoms on review. MENTAL STATUS EXAM: Oriented to himself. Insight, judgment, recent and remote memory, attention, concentration, fund of knowledge poor, consistent with his diagnosis mentioned in my initial note. PLAN: Continue current psychotropic. Start BuSpar 5 mg twice a day. Rest unchanged from initial note. MAN Maribel PEREZ MD DR: DIANA/ethan JOB#: [id number] / [id number]
--- NOTE | 2018-08-20 22:30 | PDOC ---
Exam Note: Idris Note: Please also refer to the separate dictated note~for this date of service dictated separately.~Patient seen individually. Discussed the patient with Nursing staff reviewed the chart.~Reviewed interim history and current functioning. Reviewed vital signs,~Labs/ Radiology~and current medications noted below. Continue current treatment with the changes noted in the dictated addendum note Assessment: Vital Signs: Vital Signs Date Time Temp Pulse Resp B/P (MAP) Pulse Ox O2 Delivery O2 Flow Rate FiO2 08/20/18 16:25 97.2 94 18 104/87 (93) 95 Room Air I&O Intake and Output 08/20/18 07:01 Intake Total 360 ml Balance 360 ml Intake Oral 360 ml # Voids 1 # Bowel Movements 1 Labs: Laboratory Tests Test 08/20/18 07:31 White Blood Count 6.2 x10^3/uL (4.0-11.0) Red Blood Count 4.77 x10^6/uL (4.30-5.70) Hemoglobin 14.4 g/dL (13.0-17.5) Hematocrit 44.1 % (39.0-53.0) Mean Corpuscular Volume 92 fL (79-100) Mean Corpuscular Hemoglobin 30 pg (25-35) Mean Corpuscular Hemoglobin Concent 33 g/dL (31-37) Red Cell Distribution Width 13.5 % (11.5-14.5) Platelet Count 292 x10^3/uL (140-400) Neutrophils (%) (Auto) 72 % (31-73) Lymphocytes (%) (Auto) 15 % (24-48) L Monocytes (%) (Auto) 11 % (0-9) H Eosinophils (%) (Auto) 3 % (0-3) Basophils (%) (Auto) 1 % (0-3) Neutrophils # (Auto) 4.5 x10^3uL (1.8-7.7) Lymphocytes # (Auto) 0.9 x10^3/uL (1.0-4.8) L Monocytes # (Auto) 0.7 x10^3/uL (0.0-1.1) Eosinophils # (Auto) 0.2 x10^3/uL (0.0-0.7) Basophils # (Auto) 0.0 x10^3/uL (0.0-0.2) Sodium Level 157 mmol/L (136-145) H Potassium Level 4.2 mmol/L (3.5-5.1) Chloride Level 116 mmol/L (98-107) H Carbon Dioxide Level 35 mmol/L (21-32) H Anion Gap 6 (6-14) Blood Urea Nitrogen 39 mg/dL (8-26) H Creatinine 1.4 mg/dL (0.7-1.3) H Estimated GFR (Cockcroft-Gault) 51.7 BUN/Creatinine Ratio 28 (6-20) H Glucose Level 94 mg/dL (70-99) Calcium Level 9.6 mg/dL (8.5-10.1) Total Bilirubin 0.8 mg/dL (0.2-1.0) Aspartate Amino Transferase (AST) 141 U/L (15-37) H Alanine Aminotransferase (ALT) 174 U/L (16-63) H Alkaline Phosphatase 56 U/L (46-116) Total Protein 7.2 g/dL (6.4-8.2) Albumin 3.6 g/dL (3.4-5.0) Albumin/Globulin Ratio 1.0 (1.0-1.7) Valproic Acid Level 30 mcg/mL (50-100) L Valproic Acid Last Dose Date 08/19/2018 Valproic Acid Last Dose Time 1700 Current Medications: Meds: Current Medications Acetaminophen (Tylenol) 650 mg PRN Q6HRS PRN PO PAIN / TEMP; Start 08/14/18 at 17:45 Multi-Ingredient Ointment (Analgesic [place]) 1 josh PRN QID PRN TP MUSCLE PAIN; Start 08/14/18 at 17:45 Al Hydroxide/Mg Hydroxide (Mylanta Plus Xs) 15 ml PRN AFTMEALHC PRN PO DYSPEPSIA; Start 08/14/18 at 17:45 Magnesium Hydroxide (Milk Of Magnesia) 2,400 mg PRN QHS PRN PO CONSTIPATION Last administered on 08/19/18at 08:56; Start 08/14/18 at 17:45 Olanzapine (ZyPREXA ZYDIS) 2.5 mg PRN Q2HR PRN PO ANXIETY / AGITATION 1ST CHOICE Last administered on 08/20/18at 20:27; Start 08/14/18 at 18:00 Divalproex Sodium (Depakote Sprinkles) 125 mg TID PO Last administered on 13:57; Start 08/14/18 at 21:00; Stop 08/16/18 at 16:47; Status DC Fluoxetine HCl (PROzac) 40 mg DAILY PO ; Start 08/15/18 at 09:00; Stop 08/15/18 at 09:00; Status DC Memantine (Namenda) 10 mg BID PO Last administered on 08/20/18 19:55; Start 08/14/18 at 21:00 Olanzapine (ZyPREXA) 2.5 mg PRN BID PRN PO PSYCHOSIS/AGITATION; Start 08/14/18 at 18:30; Stop 08/20/18 at 19:35; Status DC Olanzapine (ZyPREXA) 5 mg QHS PO Last administered on 08/20/18 19:56; Start 08/14/18 at 21:00 Quetiapine Fumarate (SEROquel) 25 mg PRN TID PRN PO ANXIETY/AGITATION 2ND CHOICE Last administered on 08/16/18 23:53; Start 08/14/18 at 18:30; Stop at 18:47; Status DC Fluvoxamine Maleate (Luvox) 25 mg QHS PO Last administered on 08/16/18 21:20; Start 08/14/18 at 21:00; Stop 08/16/18 at 21:01; Status DC Fluvoxamine Maleate (Luvox) 50 mg QHS PO Last administered on 08/20/18 19:56; Start 08/17/18 at 21:00 Mirtazapine (Remeron) 7.5 mg QHS PO Last administered on 08/17/18 20:09; Start 08/15/18 at 21:00; Stop 08/18/18 at 14:31; Status DC Trazodone HCl (Desyrel) 50 mg PRN QHS PRN PO INSOMNIA, MAY REPEAT X1 Last administered on 08/20/18 20:27; Start 08/15/18 at 19:00 Divalproex Sodium (Depakote Sprinkles) 250 mg BIDWMEALS PO Last administered on 08/20/18 17:20; Start 08/17/18 at 08:00 Mirtazapine (Remeron) 15 mg QHS PO Last administered on 08/20/18 19:55; Start 08/18/18 at 21:00 Buspirone HCl (Buspar) 5 mg 0900,1700 PO Last administered on 08/20/18at 17:22; Start 08/20/18 at 09:00 Docusate Sodium (Colace Solution) 100 mg BID PO Last administered on 08/20/18at 19:57; Start 08/20/18 at 21:00 Active Scripts Active Reported Zyprexa Zydis (Olanzapine) 5 Mg Tab.rapdis 2.5 Mg PO PRN Q2HR PRN Seroquel (Quetiapine Fumarate) 25 Mg Tablet 1 Tab PO TID PRN Zyprexa (Olanzapine) 2.5 Mg Tablet 1 Tab PO BID PRN Zyprexa (Olanzapine) 5 Mg Tablet 1 Tab PO QHS Namenda (Memantine Hcl) 10 Mg Tablet 1 Tab PO BID Fluoxetine Hcl 40 Mg Capsule 1 Cap PO DAILYWBKFT Depakote Sprinkle (Divalproex Sodium) 125 Mg Cap.sprink 125 Mg PO TID I have reviewed the current psychotropics carefully including drug interactions. Risk benefit ratio favors no change other than as noted in my dictated progress note. Diagnosis: Problems: (1) Anxiety disorder (2) Alcohol-induced persisting dementia (3) Dementia in Alzheimer's disease with delusions (4) Dementia in Alzheimer's disease with depression (5) Dementia, vascular, with delusions (6) Dementia, vascular, with depression (7) Impulse control disorder MELECIO PEREZ MD Aug 20, 2018 22:30
[2018-08-21 06:41] VITALS: BP 136/80
[2018-08-21] MEDS: MEMANTINE 10 MG TABLET. PO SCH ×2 (09:04→20:13)
[2018-08-21] MEDS: busPIRone 5 MG TABLET. PO SCH ×3 (09:04→20:14)
[2018-08-21] MEDS: DOCUSATE 100 MG/10 ML SOLUTION. PO SCH ×2 (09:04→20:13)
[2018-08-21] MEDS: DIVALPROEX 125 MG CAP.SPRINK PO SCH ×2 (09:04→17:11)
[2018-08-21 16:40] VITALS: BP 111/69
[2018-08-21] MEDS: MIRTAZAPINE 15 MG TABLET PO SCH (20:13)
[2018-08-21] MEDS: OLANZapine 5 MG TABLET PO SCH (20:13)
[2018-08-21] MEDS: traZODone 50 MG TABLET. PO PRN (20:17)
--- NOTE | 2018-08-21 21:51 | PDOC ---
Exam Note: Idris Note: Please also refer to the separate dictated note~for this date of service dictated separately.~Patient seen individually. Discussed the patient with Nursing staff reviewed the chart.~Reviewed interim history and current functioning. Reviewed vital signs,~Labs/ Radiology~and current medications noted below. Continue current treatment with the changes noted in the dictated addendum note Assessment: Vital Signs: Vital Signs Date Time Temp Pulse Resp B/P (MAP) Pulse Ox O2 Delivery O2 Flow Rate FiO2 08/21/18 16:40 98.4 67 20 111/69 (83) 96 08/20/18 16:25 Room Air I&O Intake and Output 08/21/18 07:01 Intake Total 120 ml Balance 120 ml Intake Oral 120 ml # Voids 1 # Bowel Movements 2 Current Medications: Meds: Current Medications Acetaminophen (Tylenol) 650 mg PRN Q6HRS PRN PO PAIN / TEMP; Start 08/14/18 at 17:45 Multi-Ingredient Ointment (Analgesic [place]) 1 josh PRN QID PRN TP MUSCLE PAIN; Start 08/14/18 at 17:45 Al Hydroxide/Mg Hydroxide (Mylanta Plus Xs) 15 ml PRN AFTMEALHC PRN PO DYSPEPSIA; Start 08/14/18 at 17:45 Magnesium Hydroxide (Milk Of Magnesia) 2,400 mg PRN QHS PRN PO CONSTIPATION Last administered on 08/19/18at 08:56; Start 08/14/18 at 17:45 Olanzapine (ZyPREXA ZYDIS) 2.5 mg PRN Q2HR PRN PO ANXIETY / AGITATION 1ST CHOICE Last administered on 08/21/18at 18:24; Start 08/14/18 at 18:00 Divalproex Sodium (Depakote Sprinkles) 125 mg TID PO Last administered on at 13:57; Start 08/14/18 at 21:00; Stop 08/16/18 at 16:47; Status DC Fluoxetine HCl (PROzac) 40 mg DAILY PO ; Start 08/15/18 at 09:00; Stop 08/15/18 at 09:00; Status DC Memantine (Namenda) 10 mg BID PO Last administered on 08/21/18at 20:13; Start 08/14/18 at 21:00 Olanzapine (ZyPREXA) 2.5 mg PRN BID PRN PO PSYCHOSIS/AGITATION; Start 08/14/18 at 18:30; Stop 08/20/18 at 19:35; Status DC Olanzapine (ZyPREXA) 5 mg QHS PO Last administered on 08/21/18 20:13; Start 08/14/18 at 21:00 Quetiapine Fumarate (SEROquel) 25 mg PRN TID PRN PO ANXIETY/AGITATION 2ND CHOICE Last administered on 08/16/18 23:53; Start 08/14/18 at 18:30; Stop at 18:47; Status DC Fluvoxamine Maleate (Luvox) 25 mg QHS PO Last administered on 08/16/18 21:20; Start 08/14/18 at 21:00; Stop 08/16/18 at 21:01; Status DC Fluvoxamine Maleate (Luvox) 50 mg QHS PO Last administered on 08/21/18 20:13; Start 08/17/18 at 21:00 Mirtazapine (Remeron) 7.5 mg QHS PO Last administered on 08/17/18 20:09; Start 08/15/18 at 21:00; Stop 08/18/18 at 14:31; Status DC Trazodone HCl (Desyrel) 50 mg PRN QHS PRN PO INSOMNIA, MAY REPEAT X1 Last administered on 08/21/18 20:17; Start 08/15/18 at 19:00 Divalproex Sodium (Depakote Sprinkles) 250 mg BIDWMEALS PO Last administered on 08/21/18 17:11; Start 08/17/18 at 08:00; Stop 08/21/18 at 20:15; Status DC Mirtazapine (Remeron) 15 mg QHS PO Last administered on 08/21/18 20:13; Start 08/18/18 at 21:00 Buspirone HCl (Buspar) 5 mg 0900,1700 PO Last administered on 08/21/18 17:10; Start 08/20/18 at 09:00; Stop 08/21/18 at 19:58; Status DC Docusate Sodium (Colace Solution) 100 mg BID PO Last administered on 08/21/18 20:13; Start 08/20/18 at 21:00 Buspirone HCl (Buspar) 5 mg BID PO Last administered on 08/21/18at 20:14; Start 08/21/18 at 21:00 Active Scripts Active Reported Zyprexa Zydis (Olanzapine) 5 Mg Tab.rapdis 2.5 Mg PO PRN Q2HR PRN Seroquel (Quetiapine Fumarate) 25 Mg Tablet 1 Tab PO TID PRN Zyprexa (Olanzapine) 2.5 Mg Tablet 1 Tab PO BID PRN Zyprexa (Olanzapine) 5 Mg Tablet 1 Tab PO QHS Namenda (Memantine Hcl) 10 Mg Tablet 1 Tab PO BID Fluoxetine Hcl 40 Mg Capsule 1 Cap PO DAILYWBKFT Depakote Sprinkle (Divalproex Sodium) 125 Mg Cap.sprink 125 Mg PO TID I have reviewed the current psychotropics carefully including drug interactions. Risk benefit ratio favors no change other than as noted in my dictated progress note. Diagnosis: Problems: (1) Anxiety disorder (2) Alcohol-induced persisting dementia (3) Dementia in Alzheimer's disease with delusions (4) Dementia in Alzheimer's disease with depression (5) Dementia, vascular, with delusions (6) Dementia, vascular, with depression (7) Impulse control disorder MELECIO PEREZ MD Aug 21, 2018 21:51
--- NOTE | 2018-08-21 23:13 | PN ---
DATE: 08/20/2018 PSYCHIATRIC PROGRESS NOTE This late entry 08/20/2017 covers elements not covered in my initial note. SUBJECTIVE: I met with the patient in the evening. The patient slept 6-1/4 hours previous night. He remains confused, wanders into the other patient's rooms, agitated, aggressive in the morning, received Zyprexa in the morning and then he knocked the medications out of the hand of the nursing staff. REVIEW OF SYSTEMS: No CV, , pulmonary, eye, ENT system symptoms on review. Reliability poor. MENTAL STATUS EXAM: Oriented to himself. Insight, judgment, recent and remote memory, attention, concentration, fund of knowledge poor, consistent with his diagnosis. IMPRESSION: Major neurocognitive disorder, Alzheimer, vascular with delusion, depression, behavioral disturbance, anxiety disorder, unspecified; impulse control disorder, unspecified. Rest unchanged from initial note. PLAN: Discontinue Zyprexa 5 mg b.i.d. p.r.n. since he is on the 2.5 mg p.r.n. dosage. We will also discontinue the Seroquel p.r.n. since he is on the Zyprexa p.r.n. Start BuSpar 5 mg twice a day. Rest unchanged from initial note. MELECIO PEREZ MD DR: DIANA/ethan JOB#: [id number] / [id number]
[2018-08-22 06:36] VITALS: BP 109/68
[2018-08-22] MEDS: busPIRone 5 MG TABLET. PO SCH ×2 (09:09→21:08)
[2018-08-22] MEDS: MEMANTINE 10 MG TABLET. PO SCH ×2 (09:09→21:08)
[2018-08-22] MEDS: DOCUSATE 100 MG/10 ML SOLUTION. PO SCH ×2 (09:09→21:08)
[2018-08-22 11:49] LABS: BASO % 0 % (0-3); EOS % 0 % (0-3); HEMATOCRIT 43.6 % (39.0-53.0); LYMPH # 0.4 x10^3/uL (1.0-4.8); LYMPH % 4 % (24-48); MEAN CORPUSCULAR HEMOGLOBIN 30 pg (25-35); MEAN CORPUSCULAR HGB CONC 32 g/dL (31-37); MEAN CORPUSCULAR VOLUME 93 fL (79-100); MONO % 9 % (0-9); NEUT # 9.3 x10^3uL (1.8-7.7); NEUT % 86 % (31-73); PLATELET COUNT 253 x10^3/uL (140-400); RED BLOOD COUNT 4.67 x10^6/uL (4.30-5.70); RED CELL DISTRIBUTION WIDTH 13.6 % (11.5-14.5); WHITE BLOOD COUNT 10.7 x10^3/uL (4.0-11.0)
[2018-08-22 12:03] LABS: ALBUMIN 3.4 g/dL (3.4-5.0); CALCIUM 9.5 mg/dL (8.5-10.1); CREATININE 1.8 mg/dL (0.7-1.3); GFR 38.7; POTASSIUM 3.8 mmol/L (3.5-5.1); TOTAL BILIRUBIN 1.1 mg/dL (0.2-1.0); TOTAL PROTEIN 6.9 g/dL (6.4-8.2)
[2018-08-22 16:54] VITALS: BP 114/71
[2018-08-22] MEDS: OLANZapine 5 MG TABLET PO SCH (21:08)
[2018-08-22] MEDS: MIRTAZAPINE 15 MG TABLET PO SCH (21:08)
--- NOTE | 2018-08-22 22:41 | PDOC ---
Exam Note: Idris Note: Please also refer to the separate dictated note~for this date of service dictated separately.~Patient seen individually. Discussed the patient with Nursing staff reviewed the chart.~Reviewed interim history and current functioning. Reviewed vital signs,~Labs/ Radiology~and current medications noted below. Continue current treatment with the changes noted in the dictated addendum note Assessment: Vital Signs: Vital Signs Date Time Temp Pulse Resp B/P (MAP) Pulse Ox O2 Delivery O2 Flow Rate FiO2 08/22/18 16:54 98.5 71 16 114/71 (85) 98 08/22/18 06:36 Room Air I&O Intake and Output 08/22/18 07:01 Intake Total 740 ml Balance 740 ml Intake Oral 740 ml Labs: Laboratory Tests Test 08/22/18 11:30 White Blood Count 10.7 x10^3/uL (4.0-11.0) # Red Blood Count 4.67 x10^6/uL (4.30-5.70) Hemoglobin 14.0 g/dL (13.0-17.5) Hematocrit 43.6 % (39.0-53.0) Mean Corpuscular Volume 93 fL (79-100) Mean Corpuscular Hemoglobin 30 pg (25-35) Mean Corpuscular Hemoglobin Concent 32 g/dL (31-37) Red Cell Distribution Width 13.6 % (11.5-14.5) Platelet Count 253 x10^3/uL (140-400) Neutrophils (%) (Auto) 86 % (31-73) H Lymphocytes (%) (Auto) 4 % (24-48) L Monocytes (%) (Auto) 9 % (0-9) Eosinophils (%) (Auto) 0 % (0-3) Basophils (%) (Auto) 0 % (0-3) Neutrophils # (Auto) 9.3 x10^3uL (1.8-7.7) H Lymphocytes # (Auto) 0.4 x10^3/uL (1.0-4.8) L Monocytes # (Auto) 1.0 x10^3/uL (0.0-1.1) Eosinophils # (Auto) 0.0 x10^3/uL (0.0-0.7) Basophils # (Auto) 0.0 x10^3/uL (0.0-0.2) Sodium Level 156 mmol/L (136-145) H Potassium Level 3.8 mmol/L (3.5-5.1) Chloride Level 116 mmol/L (98-107) H Carbon Dioxide Level 32 mmol/L (21-32) Anion Gap 8 (6-14) Blood Urea Nitrogen 49 mg/dL (8-26) H Creatinine 1.8 mg/dL (0.7-1.3) H Estimated GFR (Cockcroft-Gault) 38.7 BUN/Creatinine Ratio 27 (6-20) H Glucose Level 125 mg/dL (70-99) H Calcium Level 9.5 mg/dL (8.5-10.1) Total Bilirubin 1.1 mg/dL (0.2-1.0) H Aspartate Amino Transferase (AST) 69 U/L (15-37) H Alanine Aminotransferase (ALT) 149 U/L (16-63) H Alkaline Phosphatase 62 U/L (46-116) Total Protein 6.9 g/dL (6.4-8.2) Albumin 3.4 g/dL (3.4-5.0) Albumin/Globulin Ratio 1.0 (1.0-1.7) Current Medications: Meds: Current Medications Acetaminophen (Tylenol) 650 mg PRN Q6HRS PRN PO PAIN / TEMP; Start 08/14/18 at 17:45 Multi-Ingredient Ointment (Analgesic [place]) 1 josh PRN QID PRN TP MUSCLE PAIN; Start 08/14/18 at 17:45 Al Hydroxide/Mg Hydroxide (Mylanta Plus Xs) 15 ml PRN AFTMEALHC PRN PO DYSPEPSIA; Start 08/14/18 at 17:45 Magnesium Hydroxide (Milk Of Magnesia) 2,400 mg PRN QHS PRN PO CONSTIPATION Last administered on 08/19/18at 08:56; Start 08/14/18 at 17:45 Olanzapine (ZyPREXA ZYDIS) 2.5 mg PRN Q2HR PRN PO ANXIETY / AGITATION 1ST CHOICE Last administered on 08/21/18at 18:24; Start 08/14/18 at 18:00 Divalproex Sodium (Depakote Sprinkles) 125 mg TID PO Last administered on at 13:57; Start 08/14/18 at 21:00; Stop 08/16/18 at 16:47; Status DC Fluoxetine HCl (PROzac) 40 mg DAILY PO ; Start 08/15/18 at 09:00; Stop 08/15/18 at 09:00; Status DC Memantine (Namenda) 10 mg BID PO Last administered on 08/22/18 21:08; Start at 21:00 Olanzapine (ZyPREXA) 2.5 mg PRN BID PRN PO PSYCHOSIS/AGITATION; Start 08/14/18 at 18:30; Stop 08/20/18 at 19:35; Status DC Olanzapine (ZyPREXA) 5 mg QHS PO Last administered on 08/22/18 21:08; Start at 21:00 Quetiapine Fumarate (SEROquel) 25 mg PRN TID PRN PO ANXIETY/AGITATION 2ND CHOICE Last administered on 08/16/18 23:53; Start 08/14/18 at 18:30; Stop at 18:47; Status DC Fluvoxamine Maleate (Luvox) 25 mg QHS PO Last administered on 08/16/18 21:20; Start 08/14/18 at 21:00; Stop 08/16/18 at 21:01; Status DC Fluvoxamine Maleate (Luvox) 50 mg QHS PO Last administered on 08/22/18 21:08; Start 08/17/18 at 21:00 Mirtazapine (Remeron) 7.5 mg QHS PO Last administered on 08/17/18 20:09; Start 08/15/18 at 21:00; Stop 08/18/18 at 14:31; Status DC Trazodone HCl (Desyrel) 50 mg PRN QHS PRN PO INSOMNIA, MAY REPEAT X1 Last administered on 08/21/18at 20:17; Start 08/15/18 at 19:00 Divalproex Sodium (Depakote Sprinkles) 250 mg BIDWMEALS PO Last administered on 08/21/18at 17:11; Start 08/17/18 at 08:00; Stop 08/21/18 at 20:15; Status DC Mirtazapine (Remeron) 15 mg QHS PO Last administered on 2/10/19at 21:08; Start 08/18/18 at 21:00 Buspirone HCl (Buspar) 5 mg 0900,1700 PO Last administered on 08/21/18at 17:10; Start 08/20/18 at 09:00; Stop 08/21/18 at 19:58; Status DC Docusate Sodium (Colace Solution) 100 mg BID PO Last administered on 08/22/18at 21:08; Start 08/20/18 at 21:00 Buspirone HCl (Buspar) 5 mg BID PO Last administered on 08/22/18at 21:08; Start 08/21/18 at 21:00 Active Scripts Active Reported Zyprexa Zydis (Olanzapine) 5 Mg Tab.rapdis 2.5 Mg PO PRN Q2HR PRN Seroquel (Quetiapine Fumarate) 25 Mg Tablet 1 Tab PO TID PRN Zyprexa (Olanzapine) 2.5 Mg Tablet 1 Tab PO BID PRN Zyprexa (Olanzapine) 5 Mg Tablet 1 Tab PO QHS Namenda (Memantine Hcl) 10 Mg Tablet 1 Tab PO BID Fluoxetine Hcl 40 Mg Capsule 1 Cap PO DAILYWBKFT Depakote Sprinkle (Divalproex Sodium) 125 Mg Cap.sprink 125 Mg PO TID I have reviewed the current psychotropics carefully including drug interactions. Risk benefit ratio favors no change other than as noted in my dictated progress note. Diagnosis: Problems: (1) Anxiety disorder (2) Alcohol-induced persisting dementia (3) Dementia in Alzheimer's disease with delusions (4) Dementia in Alzheimer's disease with depression (5) Dementia, vascular, with delusions (6) Dementia, vascular, with depression (7) Impulse control disorder MELECIO PEREZ MD Aug 22, 2018 22:41
--- NOTE | 2018-08-22 23:39 | PN ---
DATE: 08/21/2018 PSYCHIATRIC PROGRESS NOTE This late entry 08/21/2018 covers elements not covered in my initial note. SUBJECTIVE: I met with the patient in the evening. The patient slept 5 hours previous night. Overall, the patient is doing better per nursing report, but after 6:00 p.m., he was agitated, received Zyprexa p.r.n. At 7:00 p.m., he was more agitated, was "head butting the window," per nursing report. Previous night he was combative, received Zyprexa and trazodone. He was punching staff, bent backwards the finger of the nursing staff. He has bruising on his right foot for kicking the doors. AST is elevated at 141, ALT at 174 and we will go ahead and stop the Depakote. REVIEW OF SYSTEMS: No CV, , pulmonary, eye, ENT system symptoms on review. Reliability poor. MENTAL STATUS EXAM: Oriented to himself. Insight, judgment, recent and remote memory, attention, concentration, fund of knowledge poor consistent with his diagnosis. 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 PLAN: Stop the Depakote. Start BuSpar 5 mg b.i.d. We will increase gradually. On further review, in fact, the patient is already on BuSpar 5 mg b.i.d. We will increase to 10 mg b.i.d. Maintain Luvox 50 mg at bedtime, Namenda 10 b.i.d., Zyprexa p.r.n., Remeron 15 mg at bedtime, trazodone p.r.n. MELECIO PEREZ MD DR: DIANA/ethan JOB#: [id number] / [id number]
[2018-08-23] MEDS: traZODone 50 MG TABLET. PO PRN ×2 (00:05→19:27)
[2018-08-23 05:59] VITALS: BP 100/72
[2018-08-23] MEDS: DOCUSATE 100 MG/10 ML SOLUTION. PO SCH ×2 (09:54→19:26)
[2018-08-23] MEDS: MEMANTINE 10 MG TABLET. PO SCH ×2 (09:54→19:26)
[2018-08-23] MEDS: busPIRone 5 MG TABLET. PO SCH ×2 (09:56→19:26)
[2018-08-23 16:17] VITALS: BP 147/50
[2018-08-23] MEDS: OLANZapine 5 MG TABLET PO SCH (19:26)
[2018-08-23] MEDS: MIRTAZAPINE 15 MG TABLET PO SCH (19:26)
--- NOTE | 2018-08-23 20:48 | PN ---
DATE: 08/22/2018 PSYCHIATRIC PROGRESS NOTE This late entry 08/22/2018 covers elements not covered in my initial note. SUBJECTIVE: I met with the patient in the evening. The patient slept 7-1/4 hours previous night. He has been in the [facility] on a couple of occasions. He does have a bruise on the right foot because he had kicked the door. He had a nap and then did a little better. Sodium 156, chloride 116, BUN raised to 49, creatinine increased to 1.8, bilirubin 1.1, AST 69, ALT 149, which are improved since we have stopped the Depakote. REVIEW OF SYSTEMS: No CV, , pulmonary, eye, ENT system symptoms on review. Reliability poor. MENTAL STATUS EXAM: Oriented to himself. Insight, judgment, recent and remote memory, attention, concentration, fund of knowledge poor consistent with his diagnosis mentioned in my initial note. PLAN: No change from initial note, but increase BuSpar from 5 b.i.d. to 10 b.i.d. Rest unchanged for now. MAN Maribel PEREZ MD DR: DIANA/ethan JOB#: [id number] / [id number]
[2018-08-24 05:39] VITALS: BP 122/73
[2018-08-24] MEDS: busPIRone 5 MG TABLET. PO SCH ×2 (09:05→20:32)
[2018-08-24] MEDS: DOCUSATE 100 MG/10 ML SOLUTION. PO SCH ×2 (09:05→20:32)
[2018-08-24] MEDS: MEMANTINE 10 MG TABLET. PO SCH ×2 (09:05→20:32)
--- NOTE | 2018-08-24 09:08 | PDOC ---
Exam Note: Idris Note: Late entry for DOS 08.23.2018. Please also refer to the separate dictated note~ for this date of service dictated separately.~Patient seen individually. Discussed the patient with Nursing staff reviewed the chart.~Reviewed interim history and current functioning. Reviewed vital signs,~Labs/ Radiology~and current medications noted below. Continue current treatment with the changes noted in the dictated addendum note Assessment: Vital Signs: VS - Last 72 Hours, by Label Date Time Temp Pulse Resp B/P (MAP) Pulse Ox O2 Delivery O2 Flow Rate FiO2 08/24/18 05:39 98.1 67 18 122/73 (89) 98 08/23/18 16:17 97.9 86 19 147/50 (82) 99 08/23/18 05:59 98.1 68 18 100/72 (81) 92 08/22/18 16:54 98.5 71 16 114/71 (85) 98 08/22/18 06:36 97.8 60 18 109/68 (82) 100 Room Air 08/21/18 16:40 98.4 67 20 111/69 (83) 96 Vital Signs Date Time Temp Pulse Resp B/P (MAP) Pulse Ox O2 Delivery O2 Flow Rate FiO2 08/24/18 05:39 98.1 67 18 122/73 (89) 98 08/22/18 06:36 Room Air I&O Intake and Output 08/24/18 06:59 Intake Total 320 ml Balance 320 ml Intake Oral 320 ml # Voids 1 Current Medications: Meds: Current Medications Acetaminophen (Tylenol) 650 mg PRN Q6HRS PRN PO PAIN / TEMP; Start 08/14/18 at 17:45 Multi-Ingredient Ointment (Analgesic [place]) 1 josh PRN QID PRN TP MUSCLE PAIN; Start 08/14/18 at 17:45 Al Hydroxide/Mg Hydroxide (Mylanta Plus Xs) 15 ml PRN AFTMEALHC PRN PO DYSPEPSIA; Start 08/14/18 at 17:45 Magnesium Hydroxide (Milk Of Magnesia) 2,400 mg PRN QHS PRN PO CONSTIPATION Last administered on 08/19/18at 08:56; Start 08/14/18 at 17:45 Olanzapine (ZyPREXA ZYDIS) 2.5 mg PRN Q2HR PRN PO ANXIETY / AGITATION 1ST CHOICE Last administered on 08/23/18 16:22; Start 08/14/18 at 18:00 Divalproex Sodium (Depakote Sprinkles) 125 mg TID PO Last administered on 13:57; Start 08/14/18 at 21:00; Stop 08/16/18 at 16:47; Status DC Fluoxetine HCl (PROzac) 40 mg DAILY PO ; Start 08/15/18 at 09:00; Stop 08/15/18 at 09:00; Status DC Memantine (Namenda) 10 mg BID PO Last administered on 08/24/18 09:05; Start at 21:00 Olanzapine (ZyPREXA) 2.5 mg PRN BID PRN PO PSYCHOSIS/AGITATION; Start 08/14/18 at 18:30; Stop 08/20/18 at 19:35; Status DC Olanzapine (ZyPREXA) 5 mg QHS PO Last administered on 08/23/18 19:26; Start at 21:00 Quetiapine Fumarate (SEROquel) 25 mg PRN TID PRN PO ANXIETY/AGITATION 2ND CHOICE Last administered on 08/16/18 23:53; Start 08/14/18 at 18:30; Stop at 18:47; Status DC Fluvoxamine Maleate (Luvox) 25 mg QHS PO Last administered on 08/16/18 21:20; Start 08/14/18 at 21:00; Stop 08/16/18 at 21:01; Status DC Fluvoxamine Maleate (Luvox) 50 mg QHS PO Last administered on 08/23/18 19:26; Start 08/17/18 at 21:00 Mirtazapine (Remeron) 7.5 mg QHS PO Last administered on 08/17/18 20:09; Start 08/15/18 at 21:00; Stop 08/18/18 at 14:31; Status DC Trazodone HCl (Desyrel) 50 mg PRN QHS PRN PO INSOMNIA, MAY REPEAT X1 Last administered on 08/23/18 19:27; Start 08/15/18 at 19:00 Divalproex Sodium (Depakote Sprinkles) 250 mg BIDWMEALS PO Last administered on 08/21/18 17:11; Start 08/17/18 at 08:00; Stop 08/21/18 at 20:15; Status DC Mirtazapine (Remeron) 15 mg QHS PO Last administered on 08/23/18 19:26; Start 08/18/18 at 21:00 Buspirone HCl (Buspar) 5 mg 0900,1700 PO Last administered on 08/21/18 17:10; Start 08/20/18 at 09:00; Stop 08/21/18 at 19:58; Status DC Docusate Sodium (Colace Solution) 100 mg BID PO Last administered on 08/24/18 09:05; Start 08/20/18 at 21:00 Buspirone HCl (Buspar) 5 mg BID PO Last administered on 08/22/18at 21:08; Start 08/21/18 at 21:00; Stop 08/22/18 at 23:37; Status DC Buspirone HCl (Buspar) 10 mg BID PO Last administered on 08/24/18at 09:05; Start 08/23/18 at 09:00 Active Scripts Active Reported Zyprexa Zydis (Olanzapine) 5 Mg Tab.rapdis 2.5 Mg PO PRN Q2HR PRN Seroquel (Quetiapine Fumarate) 25 Mg Tablet 1 Tab PO TID PRN Zyprexa (Olanzapine) 2.5 Mg Tablet 1 Tab PO BID PRN Zyprexa (Olanzapine) 5 Mg Tablet 1 Tab PO QHS Namenda (Memantine Hcl) 10 Mg Tablet 1 Tab PO BID Fluoxetine Hcl 40 Mg Capsule 1 Cap PO DAILYWBKFT Depakote Sprinkle (Divalproex Sodium) 125 Mg Cap.sprink 125 Mg PO TID I have reviewed the current psychotropics carefully including drug interactions. Risk benefit ratio favors no change other than as noted in my dictated progress note. Diagnosis: Problems: (1) Anxiety disorder (2) Alcohol-induced persisting dementia (3) Dementia in Alzheimer's disease with delusions (4) Dementia in Alzheimer's disease with depression (5) Dementia, vascular, with delusions (6) Dementia, vascular, with depression (7) Impulse control disorder MELECIO PEREZ MD Aug 24, 2018 09:08
[2018-08-24 15:02] VITALS: BP 92/69
--- NOTE | 2018-08-24 18:38 | PN ---
DATE: 08/23/2018 PSYCHIATRIC PROGRESS NOTE This late entry 08/23/2018 covers elements not covered in my initial note. SUBJECTIVE: I met with the patient in the evening. The patient slept 5-1/2 hours previous night. He did well most of the day other than being confused, wandering the hallways, but by the evening around 5:00 p.m., he was getting more agitated, restless, had to be in the [facility] hallway. He slept in another patient's room, totally oblivious of this. REVIEW OF SYSTEMS: No CV, , pulmonary, eye, ENT system symptoms on review. Reliability poor. MENTAL STATUS EXAM: Oriented to himself. Insight, judgment, recent and remote memory, attention, concentration, fund of knowledge poor, consistent with his diagnosis mentioned in my initial note. IMPRESSION: Unchanged from initial note. PLAN: Continue current psychotropics. Depakote has been stopped due to his raised liver enzymes. We will repeat liver enzymes. Rest unchanged for now. MAN Maribel PEREZ MD DR: DIANA/ethan JOB#: [id number] / [id number]
[2018-08-24] MEDS: OLANZapine 5 MG TABLET PO SCH (20:32)
[2018-08-24] MEDS: MIRTAZAPINE 15 MG TABLET PO SCH (20:32)
[2018-08-24] MEDS: OXcarbazepine 150 MG TABLET. PO SCH (20:34)
[2018-08-24] MEDS: MAGNESIUM HYDROXIDE 2,400 MG/30 ML ORAL.SUSP. PO PRN (20:35)
--- NOTE | 2018-08-24 22:33 | PDOC ---
Exam Note: Idris Note: Please also refer to the separate dictated note~for this date of service dictated separately.~Patient seen individually. Discussed the patient with Nursing staff reviewed the chart.~Reviewed interim history and current functioning. Reviewed vital signs,~Labs/ Radiology~and current medications noted below. Continue current treatment with the changes noted in the dictated addendum note Assessment: Vital Signs: Vital Signs Date Time Temp Pulse Resp B/P (MAP) Pulse Ox O2 Delivery O2 Flow Rate FiO2 08/24/18 15:02 97.7 101 20 92/69 (77) 98 08/22/18 06:36 Room Air I&O Intake and Output 08/24/18 07:00 Intake Total 320 ml Balance 320 ml Intake Oral 320 ml # Voids 1 Current Medications: Meds: Current Medications Acetaminophen (Tylenol) 650 mg PRN Q6HRS PRN PO PAIN / TEMP; Start 08/14/18 at 17:45 Multi-Ingredient Ointment (Analgesic [place]) 1 josh PRN QID PRN TP MUSCLE PAIN; Start 08/14/18 at 17:45 Al Hydroxide/Mg Hydroxide (Mylanta Plus Xs) 15 ml PRN AFTMEALHC PRN PO DYSPEPSIA; Start 08/14/18 at 17:45 Magnesium Hydroxide (Milk Of Magnesia) 2,400 mg PRN QHS PRN PO CONSTIPATION Last administered on 08/24/18at 20:35; Start 08/14/18 at 17:45 Olanzapine (ZyPREXA ZYDIS) 2.5 mg PRN Q2HR PRN PO ANXIETY / AGITATION 1ST CHOICE Last administered on 08/24/18at 15:32; Start 08/14/18 at 18:00 Divalproex Sodium (Depakote Sprinkles) 125 mg TID PO Last administered on at 13:57; Start 08/14/18 at 21:00; Stop 08/16/18 at 16:47; Status DC Fluoxetine HCl (PROzac) 40 mg DAILY PO ; Start 08/15/18 at 09:00; Stop 08/15/18 at 09:00; Status DC Memantine (Namenda) 10 mg BID PO Last administered on 08/24/18at 20:32; Start at 21:00 Olanzapine (ZyPREXA) 2.5 mg PRN BID PRN PO PSYCHOSIS/AGITATION; Start 08/14/18 at 18:30; Stop 08/20/18 at 19:35; Status DC Olanzapine (ZyPREXA) 5 mg QHS PO Last administered on 08/24/18 20:32; Start at 21:00 Quetiapine Fumarate (SEROquel) 25 mg PRN TID PRN PO ANXIETY/AGITATION 2ND CHOICE Last administered on 08/16/18 23:53; Start 08/14/18 at 18:30; Stop at 18:47; Status DC Fluvoxamine Maleate (Luvox) 25 mg QHS PO Last administered on 08/16/18 21:20; Start 08/14/18 at 21:00; Stop 08/16/18 at 21:01; Status DC Fluvoxamine Maleate (Luvox) 50 mg QHS PO Last administered on 08/24/18 20:32; Start 08/17/18 at 21:00 Mirtazapine (Remeron) 7.5 mg QHS PO Last administered on 08/17/18 20:09; Start 08/15/18 at 21:00; Stop 08/18/18 at 14:31; Status DC Trazodone HCl (Desyrel) 50 mg PRN QHS PRN PO INSOMNIA, MAY REPEAT X1 Last administered on 08/23/18 19:27; Start 08/15/18 at 19:00 Divalproex Sodium (Depakote Sprinkles) 250 mg BIDWMEALS PO Last administered on 08/21/18 17:11; Start 08/17/18 at 08:00; Stop 08/21/18 at 20:15; Status DC Mirtazapine (Remeron) 15 mg QHS PO Last administered on 08/24/18 20:32; Start 08/18/18 at 21:00 Buspirone HCl (Buspar) 5 mg 0900,1700 PO Last administered on 08/21/18 17:10; Start 08/20/18 at 09:00; Stop 08/21/18 at 19:58; Status DC Docusate Sodium (Colace Solution) 100 mg BID PO Last administered on 08/24/18 20:32; Start 2/8/19 at 21:00 Buspirone HCl (Buspar) 5 mg BID PO Last administered on 08/22/18at 21:08; Start 08/21/18 at 21:00; Stop 08/22/18 at 23:37; Status DC Buspirone HCl (Buspar) 10 mg BID PO Last administered on 08/24/18at 20:32; Start 08/23/18 at 09:00 Oxcarbazepine (Trileptal) 150 mg BID PO Last administered on 08/24/18at 20:34; Start 08/24/18 at 21:00 Active Scripts Active Reported Zyprexa Zydis (Olanzapine) 5 Mg Tab.rapdis 2.5 Mg PO PRN Q2HR PRN Seroquel (Quetiapine Fumarate) 25 Mg Tablet 1 Tab PO TID PRN Zyprexa (Olanzapine) 2.5 Mg Tablet 1 Tab PO BID PRN Zyprexa (Olanzapine) 5 Mg Tablet 1 Tab PO QHS Namenda (Memantine Hcl) 10 Mg Tablet 1 Tab PO BID Fluoxetine Hcl 40 Mg Capsule 1 Cap PO DAILYWBKFT Depakote Sprinkle (Divalproex Sodium) 125 Mg Cap.sprink 125 Mg PO TID I have reviewed the current psychotropics carefully including drug interactions. Risk benefit ratio favors no change other than as noted in my dictated progress note. Diagnosis: Problems: (1) Anxiety disorder (2) Alcohol-induced persisting dementia (3) Dementia in Alzheimer's disease with delusions (4) Dementia in Alzheimer's disease with depression (5) Dementia, vascular, with delusions (6) Dementia, vascular, with depression (7) Impulse control disorder MELECIO PEREZ MD Aug 24, 2018 22:33
[2018-08-25] MEDS: traZODone 50 MG TABLET. PO PRN (01:36)
[2018-08-25] MEDS: MAGNESIUM HYDROXIDE 2,400 MG/30 ML ORAL.SUSP. PO PRN (01:37)
[2018-08-25 07:49] LABS: ALBUMIN 3.3 g/dL (3.4-5.0); CALCIUM 9.4 mg/dL (8.5-10.1); CREATININE 1.5 mg/dL (0.7-1.3); GFR 47.7; POTASSIUM 3.8 mmol/L (3.5-5.1); TOTAL BILIRUBIN 0.7 mg/dL (0.2-1.0); TOTAL PROTEIN 6.7 g/dL (6.4-8.2)
[2018-08-25] MEDS: MEMANTINE 10 MG TABLET. PO SCH ×2 (09:57→20:17)
[2018-08-25] MEDS: OXcarbazepine 150 MG TABLET. PO SCH ×2 (09:57→20:17)
[2018-08-25] MEDS: busPIRone 5 MG TABLET. PO SCH ×2 (09:57→20:17)
[2018-08-25] MEDS: DOCUSATE 100 MG/10 ML SOLUTION. PO SCH ×2 (09:57→20:16)
[2018-08-25 16:04] VITALS: BP 101/71
[2018-08-25] MEDS: MIRTAZAPINE 15 MG TABLET PO SCH (20:17)
[2018-08-25] MEDS: OLANZapine 5 MG TABLET PO SCH (20:17)
--- NOTE | 2018-08-25 21:49 | PN ---
DATE: 08/24/2018 PSYCHIATRIC PROGRESS NOTE This late entry 08/24/2017 covers elements not covered in my initial note. SUBJECTIVE: I met with the patient in the evening. The patient slept 7-1/2 hours previous night. Previous evening, he was less combative, but restless, disorganized. He did well in the morning, but later was wandering, restless, received Zyprexa, at times too combative on two separate occasions. We have had to stop the Depakote because of his raised liver enzymes, which are slowly improving. REVIEW OF SYSTEMS: No CV, , pulmonary, eye, ENT system symptoms on review. MENTAL STATUS EXAM: Oriented to himself. Insight, judgment, recent and remote memory, attention, concentration, fund of knowledge poor, consistent with his diagnosis mentioned in my initial note. PLAN: The patient definitely seems to need a mood stabilizer. We are unable to use Depakote. We will start Trileptal 150 mg twice a day. Continue rest unchanged for now. MAN Maribel PEREZ MD DR: DIANA/ethan JOB#: [id number] / [id number]
--- NOTE | 2018-08-25 22:13 | PDOC ---
Exam Note: Idris Note: Please also refer to the separate dictated note~for this date of service dictated separately.~Patient seen individually. Discussed the patient with Nursing staff reviewed the chart.~Reviewed interim history and current functioning. Reviewed vital signs,~Labs/ Radiology~and current medications noted below. Continue current treatment with the changes noted in the dictated addendum note Assessment: Vital Signs: Vital Signs Date Time Temp Pulse Resp B/P (MAP) Pulse Ox O2 Delivery O2 Flow Rate FiO2 08/25/18 16:04 97.6 66 20 101/71 (81) 100 08/22/18 06:36 Room Air I&O Intake and Output 08/25/18 07:00 Intake Total 1180 ml Balance 1180 ml Intake Oral 1180 ml Labs: Laboratory Tests Test 08/25/18 07:20 Sodium Level 158 mmol/L (136-145) H Potassium Level 3.8 mmol/L (3.5-5.1) Chloride Level 118 mmol/L (98-107) H Carbon Dioxide Level 35 mmol/L (21-32) H Anion Gap 5 (6-14) L Blood Urea Nitrogen 48 mg/dL (8-26) H Creatinine 1.5 mg/dL (0.7-1.3) H Estimated GFR (Cockcroft-Gault) 47.7 BUN/Creatinine Ratio 32 (6-20) H Glucose Level 83 mg/dL (70-99) Calcium Level 9.4 mg/dL (8.5-10.1) Total Bilirubin 0.7 mg/dL (0.2-1.0) Aspartate Amino Transferase (AST) 40 U/L (15-37) H Alanine Aminotransferase (ALT) 110 U/L (16-63) H Alkaline Phosphatase 70 U/L (46-116) Total Protein 6.7 g/dL (6.4-8.2) Albumin 3.3 g/dL (3.4-5.0) L Albumin/Globulin Ratio 1.0 (1.0-1.7) Current Medications: Meds: Current Medications Acetaminophen (Tylenol) 650 mg PRN Q6HRS PRN PO PAIN / TEMP; Start 08/14/18 at 17:45 Multi-Ingredient Ointment (Analgesic [place]) 1 josh PRN QID PRN TP MUSCLE PAIN; Start 08/14/18 at 17:45 Al Hydroxide/Mg Hydroxide (Mylanta Plus Xs) 15 ml PRN AFTMEALHC PRN PO DYSPEPSIA; Start 08/14/18 at 17:45 Magnesium Hydroxide (Milk Of Magnesia) 2,400 mg PRN QHS PRN PO CONSTIPATION Last administered on 08/25/18 01:37; Start 08/14/18 at 17:45 Olanzapine (ZyPREXA ZYDIS) 2.5 mg PRN Q2HR PRN PO ANXIETY / AGITATION 1ST CHOICE Last administered on 08/25/18 17:26; Start 08/14/18 at 18:00 Divalproex Sodium (Depakote Sprinkles) 125 mg TID PO Last administered on 13:57; Start 08/14/18 at 21:00; Stop 08/16/18 at 16:47; Status DC Fluoxetine HCl (PROzac) 40 mg DAILY PO ; Start 08/15/18 at 09:00; Stop 08/15/18 at 09:00; Status DC Memantine (Namenda) 10 mg BID PO Last administered on 08/25/18 20:17; Start at 21:00 Olanzapine (ZyPREXA) 2.5 mg PRN BID PRN PO PSYCHOSIS/AGITATION; Start 08/14/18 at 18:30; Stop 08/20/18 at 19:35; Status DC Olanzapine (ZyPREXA) 5 mg QHS PO Last administered on 08/25/18 20:17; Start at 21:00 Quetiapine Fumarate (SEROquel) 25 mg PRN TID PRN PO ANXIETY/AGITATION 2ND CHOICE Last administered on 08/16/18 23:53; Start 08/14/18 at 18:30; Stop at 18:47; Status DC Fluvoxamine Maleate (Luvox) 25 mg QHS PO Last administered on 08/16/18 21:20; Start 08/14/18 at 21:00; Stop 08/16/18 at 21:01; Status DC Fluvoxamine Maleate (Luvox) 50 mg QHS PO Last administered on 08/25/18 20:17; Start 08/17/18 at 21:00 Mirtazapine (Remeron) 7.5 mg QHS PO Last administered on 08/17/18 20:09; Start 08/15/18 at 21:00; Stop 08/18/18 at 14:31; Status DC Trazodone HCl (Desyrel) 50 mg PRN QHS PRN PO INSOMNIA, MAY REPEAT X1 Last administered on 08/25/18 01:36; Start 08/15/18 at 19:00 Divalproex Sodium (Depakote Sprinkles) 250 mg BIDWMEALS PO Last administered on 08/21/18 17:11; Start 08/17/18 at 08:00; Stop 08/21/18 at 20:15; Status DC Mirtazapine (Remeron) 15 mg QHS PO Last administered on 08/25/18 20:17; Start 08/18/18 at 21:00 Buspirone HCl (Buspar) 5 mg 0900,1700 PO Last administered on 08/21/18 17:10; Start 08/20/18 at 09:00; Stop 08/21/18 at 19:58; Status DC Docusate Sodium (Colace Solution) 100 mg BID PO Last administered on 08/25/18 20:16; Start 08/20/18 at 21:00 Buspirone HCl (Buspar) 5 mg BID PO Last administered on 08/22/18 21:08; Start 08/21/18 at 21:00; Stop 08/22/18 at 23:37; Status DC Buspirone HCl (Buspar) 10 mg BID PO Last administered on 08/25/18 20:17; Start 08/23/18 at 09:00 Oxcarbazepine (Trileptal) 150 mg BID PO Last administered on 08/25/18 20:17; Start 08/24/18 at 21:00 Trazodone HCl (Desyrel) 12.5 mg 0900,1300 PO ; Start 08/26/18 at 09:00 Active Scripts Active Reported Zyprexa Zydis (Olanzapine) 5 Mg Tab.rapdis 2.5 Mg PO PRN Q2HR PRN Seroquel (Quetiapine Fumarate) 25 Mg Tablet 1 Tab PO TID PRN Zyprexa (Olanzapine) 2.5 Mg Tablet 1 Tab PO BID PRN Zyprexa (Olanzapine) 5 Mg Tablet 1 Tab PO QHS Namenda (Memantine Hcl) 10 Mg Tablet 1 Tab PO BID Fluoxetine Hcl 40 Mg Capsule 1 Cap PO DAILYWBKFT Depakote Sprinkle (Divalproex Sodium) 125 Mg Cap.sprink 125 Mg PO TID I have reviewed the current psychotropics carefully including drug interactions. Risk benefit ratio favors no change other than as noted in my dictated progress note. Diagnosis: Problems: (1) Anxiety disorder (2) Alcohol-induced persisting dementia (3) Dementia in Alzheimer's disease with delusions (4) Dementia in Alzheimer's disease with depression (5) Dementia, vascular, with delusions (6) Dementia, vascular, with depression (7) Impulse control disorder MELECIO PEREZ MD Aug 25, 2018 22:13
[2018-08-26 06:06] VITALS: BP 131/74
[2018-08-26] MEDS: traZODone 50 MG TABLET. PO SCH ×2 (13:00→13:42)
[2018-08-26] MEDS: MEMANTINE 10 MG TABLET. PO SCH ×2 (13:42→19:45)
[2018-08-26] MEDS: OXcarbazepine 150 MG TABLET. PO SCH ×2 (13:42→19:46)
[2018-08-26] MEDS: DOCUSATE 100 MG/10 ML SOLUTION. PO SCH ×2 (13:42→19:45)
[2018-08-26] MEDS: busPIRone 5 MG TABLET. PO SCH ×2 (13:42→19:45)
[2018-08-26 16:12] LABS: THYROXINE 3.4 ug/dL (4.5-12.0)
[2018-08-26] MEDS: MIRTAZAPINE 15 MG TABLET PO SCH (19:45)
[2018-08-26] MEDS: OLANZapine 5 MG TABLET PO SCH (19:46)
--- NOTE | 2018-08-26 22:34 | PDOC ---
Exam Note: Idris Note: Please also refer to the separate dictated note~for this date of service dictated separately.~Patient seen individually. Discussed the patient with Nursing staff reviewed the chart.~Reviewed interim history and current functioning. Reviewed vital signs,~Labs/ Radiology~and current medications noted below. Continue current treatment with the changes noted in the dictated addendum note Assessment: Vital Signs: Vital Signs Date Time Temp Pulse Resp B/P (MAP) Pulse Ox O2 Delivery O2 Flow Rate FiO2 08/26/18 16:30 60 18 98 08/26/18 06:06 97.7 131/74 (93) Room Air I&O Intake and Output 08/26/18 07:00 Intake Total 760 ml Balance 760 ml Intake Oral 760 ml Labs: Laboratory Tests Test 08/26/18 06:36 Free Thyroxine 0.70 ng/dL (0.76-1.46) L Thyroxine (T4) 3.4 ug/dL (4.5-12.0) L Total Triiodothyronine (TT3) 59 ng/dL (71-180) L Current Medications: Meds: Current Medications Acetaminophen (Tylenol) 650 mg PRN Q6HRS PRN PO PAIN / TEMP; Start 08/14/18 at 17:45 Multi-Ingredient Ointment (Analgesic [place]) 1 josh PRN QID PRN TP MUSCLE PAIN; Start 08/14/18 at 17:45 Al Hydroxide/Mg Hydroxide (Mylanta Plus Xs) 15 ml PRN AFTMEALHC PRN PO DYSPEPSIA; Start 08/14/18 at 17:45 Magnesium Hydroxide (Milk Of Magnesia) 2,400 mg PRN QHS PRN PO CONSTIPATION Last administered on 08/25/18at 01:37; Start 08/14/18 at 17:45 Olanzapine (ZyPREXA ZYDIS) 2.5 mg PRN Q2HR PRN PO ANXIETY / AGITATION 1ST CHOICE Last administered on 08/26/18at 09:24; Start 08/14/18 at 18:00 Divalproex Sodium (Depakote Sprinkles) 125 mg TID PO Last administered on at 13:57; Start 08/14/18 at 21:00; Stop 08/16/18 at 16:47; Status DC Fluoxetine HCl (PROzac) 40 mg DAILY PO ; Start 08/15/18 at 09:00; Stop 08/15/18 at 09:00; Status DC Memantine (Namenda) 10 mg BID PO Last administered on 08/26/18 19:45; Start at 21:00 Olanzapine (ZyPREXA) 2.5 mg PRN BID PRN PO PSYCHOSIS/AGITATION; Start 08/14/18 at 18:30; Stop 08/20/18 at 19:35; Status DC Olanzapine (ZyPREXA) 5 mg QHS PO Last administered on 08/26/18 19:46; Start at 21:00 Quetiapine Fumarate (SEROquel) 25 mg PRN TID PRN PO ANXIETY/AGITATION 2ND CHOICE Last administered on 08/16/18 23:53; Start 08/14/18 at 18:30; Stop at 18:47; Status DC Fluvoxamine Maleate (Luvox) 25 mg QHS PO Last administered on 08/16/18 21:20; Start 08/14/18 at 21:00; Stop 08/16/18 at 21:01; Status DC Fluvoxamine Maleate (Luvox) 50 mg QHS PO Last administered on 08/26/18 19:46; Start 08/17/18 at 21:00 Mirtazapine (Remeron) 7.5 mg QHS PO Last administered on 08/17/18 20:09; Start 08/15/18 at 21:00; Stop 08/18/18 at 14:31; Status DC Trazodone HCl (Desyrel) 50 mg PRN QHS PRN PO INSOMNIA, MAY REPEAT X1 Last administered on 08/25/18 01:36; Start 08/15/18 at 19:00 Divalproex Sodium (Depakote Sprinkles) 250 mg BIDWMEALS PO Last administered on 08/21/18 17:11; Start 08/17/18 at 08:00; Stop 08/21/18 at 20:15; Status DC Mirtazapine (Remeron) 15 mg QHS PO Last administered on 08/26/18 19:45; Start 08/18/18 at 21:00 Buspirone HCl (Buspar) 5 mg 0900,1700 PO Last administered on 08/21/18 17:10; Start 08/20/18 at 09:00; Stop 08/21/18 at 19:58; Status DC Docusate Sodium (Colace Solution) 100 mg BID PO Last administered on 08/26/18 19:45; Start 08/20/18 at 21:00 Buspirone HCl (Buspar) 5 mg BID PO Last administered on 08/22/18 21:08; Start 08/21/18 at 21:00; Stop 08/22/18 at 23:37; Status DC Buspirone HCl (Buspar) 10 mg BID PO Last administered on 08/26/18 19:45; Start 08/23/18 at 09:00 Oxcarbazepine (Trileptal) 150 mg BID PO Last administered on 08/26/18 19:46; Start 08/24/18 at 21:00 Trazodone HCl (Desyrel) 12.5 mg 0900,1300 PO Last administered on 08/26/18 13: 42; Start 08/26/18 at 09:00 Levothyroxine Sodium (Synthroid) 50 mcg DAILY06 PO ; Start 08/27/18 at 06:00 Active Scripts Active Reported Zyprexa Zydis (Olanzapine) 5 Mg Tab.rapdis 2.5 Mg PO PRN Q2HR PRN Seroquel (Quetiapine Fumarate) 25 Mg Tablet 1 Tab PO TID PRN Zyprexa (Olanzapine) 2.5 Mg Tablet 1 Tab PO BID PRN Zyprexa (Olanzapine) 5 Mg Tablet 1 Tab PO QHS Namenda (Memantine Hcl) 10 Mg Tablet 1 Tab PO BID Fluoxetine Hcl 40 Mg Capsule 1 Cap PO DAILYWBKFT Depakote Sprinkle (Divalproex Sodium) 125 Mg Cap.sprink 125 Mg PO TID I have reviewed the current psychotropics carefully including drug interactions. Risk benefit ratio favors no change other than as noted in my dictated progress note. Diagnosis: Problems: (1) Anxiety disorder (2) Alcohol-induced persisting dementia (3) Dementia in Alzheimer's disease with delusions (4) Dementia in Alzheimer's disease with depression (5) Dementia, vascular, with delusions (6) Dementia, vascular, with depression (7) Impulse control disorder MELECIO PEREZ MD Aug 26, 2018 22:34
[2018-08-27] MEDS: LEVOTHYROXINE 50 MCG TABLET PO SCH (05:25)
[2018-08-27] MEDS: MEMANTINE 10 MG TABLET. PO SCH ×2 (08:00→19:39)
[2018-08-27] MEDS: busPIRone 5 MG TABLET. PO SCH ×2 (08:00→19:38)
[2018-08-27] MEDS: OXcarbazepine 150 MG TABLET. PO SCH ×2 (08:00→19:38)
[2018-08-27] MEDS: traZODone 50 MG TABLET. PO SCH ×2 (08:00→12:51)
[2018-08-27] MEDS: DOCUSATE 100 MG/10 ML SOLUTION. PO SCH ×2 (08:00→19:38)
[2018-08-27 16:35] VITALS: BP 117/73
[2018-08-27] MEDS: MIRTAZAPINE 15 MG TABLET PO SCH (19:38)
[2018-08-27] MEDS: OLANZapine 5 MG TABLET PO SCH (19:38)
--- NOTE | 2018-08-27 19:51 | PN ---
DATE: 08/25/2018 PSYCHIATRIC PROGRESS NOTE This late entry 08/25/2018 covers elements not covered in my initial note. SUBJECTIVE: I met with the patient in the evening. The patient slept just 1-1/4 hours previous night. Previous night he was quite disorganized, crushed the cup of medications that he was presented, irritable, having some constipation, received milk of mag. Earlier in the day on 08/25/2018, he charged at the nursing staff. Received Zyprexa, was placed in the [facility] for less stimulation. At 1110, he was again agitated, somewhat paranoid, believes people were after him. REVIEW OF SYSTEMS: No CV, , pulmonary, eye, ENT system symptoms on review. Reliability poor. MENTAL STATUS EXAM: Oriented to himself. Insight, judgment, recent and remote memory, attention, concentration, fund of knowledge poor consistent with his diagnosis mentioned in my initial note. PLAN: Start trazodone 12.5 mg 9 a.m. and 1 p.m. Maintain rest of the psychotropics unchanged. Trazodone is to help with his anxiety, agitation. May need to increase gradually MAN Maribel PEREZ MD DR: DIANA/ethan JOB#: [id number] / [id number]
--- NOTE | 2018-08-27 19:58 | PN ---
DATE: 08/26/2018 PSYCHIATRIC PROGRESS NOTE This late entry 08/26/2018 covers elements not covered in my initial note. SUBJECTIVE: I met with the patient in the evening and staffed at a treatment team meeting with the entire team in the morning with Henok, patient's daughter, attending the conference. The patient slept 4-1/2 hours, average 2 hours previous night. Oral intake poor, restless, wandering off, and having to be put in the vest hallway for lower stimulation. He is dehydrated. Family is deciding on hospice care and how actively to pursue with the rehydration. REVIEW OF SYSTEMS: No CV, , pulmonary, eye, ENT system symptoms on review. Reliability poor. MENTAL STATUS EXAM: Oriented to himself. Insight, judgment, recent and remote memory, attention, concentration, fund of knowledge poor, consistent with his diagnosis mentioned in my initial note. PLAN: No change from initial note. MAN Maribel PEREZ MD DR: DIANA/ethan JOB#: [id number] / [id number]
[2018-08-27] MEDS: traZODone 50 MG TABLET. PO PRN (21:23)
--- NOTE | 2018-08-27 22:34 | PDOC ---
Exam Note: Idris Note: Please also refer to the separate dictated note~for this date of service dictated separately.~Patient seen individually. Discussed the patient with Nursing staff reviewed the chart.~Reviewed interim history and current functioning. Reviewed vital signs,~Labs/ Radiology~and current medications noted below. Continue current treatment with the changes noted in the dictated addendum note Assessment: Vital Signs: Vital Signs Date Time Temp Pulse Resp B/P (MAP) Pulse Ox O2 Delivery O2 Flow Rate FiO2 08/27/18 16:35 97.8 65 20 117/73 (88) 95 Room Air I&O Intake and Output 08/27/18 07:00 # Voids 1 Current Medications: Meds: Current Medications Acetaminophen (Tylenol) 650 mg PRN Q6HRS PRN PO PAIN / TEMP; Start 08/14/18 at 17:45 Multi-Ingredient Ointment (Analgesic [place]) 1 josh PRN QID PRN TP MUSCLE PAIN; Start 08/14/18 at 17:45 Al Hydroxide/Mg Hydroxide (Mylanta Plus Xs) 15 ml PRN AFTMEALHC PRN PO DYSPEPSIA; Start 08/14/18 at 17:45 Magnesium Hydroxide (Milk Of Magnesia) 2,400 mg PRN QHS PRN PO CONSTIPATION Last administered on 08/25/18at 01:37; Start 08/14/18 at 17:45 Olanzapine (ZyPREXA ZYDIS) 2.5 mg PRN Q2HR PRN PO ANXIETY / AGITATION 1ST CHOICE Last administered on 08/27/18at 21:23; Start 08/14/18 at 18:00 Divalproex Sodium (Depakote Sprinkles) 125 mg TID PO Last administered on at 13:57; Start 08/14/18 at 21:00; Stop 08/16/18 at 16:47; Status DC Fluoxetine HCl (PROzac) 40 mg DAILY PO ; Start 08/15/18 at 09:00; Stop 08/15/18 at 09:00; Status DC Memantine (Namenda) 10 mg BID PO Last administered on 08/27/18at 19:39; Start at 21:00 Olanzapine (ZyPREXA) 2.5 mg PRN BID PRN PO PSYCHOSIS/AGITATION; Start 08/14/18 at 18:30; Stop 08/20/18 at 19:35; Status DC Olanzapine (ZyPREXA) 5 mg QHS PO Last administered on 08/27/18 19:38; Start at 21:00 Quetiapine Fumarate (SEROquel) 25 mg PRN TID PRN PO ANXIETY/AGITATION 2ND CHOICE Last administered on 08/16/18 23:53; Start 08/14/18 at 18:30; Stop at 18:47; Status DC Fluvoxamine Maleate (Luvox) 25 mg QHS PO Last administered on 08/16/18 21:20; Start 08/14/18 at 21:00; Stop 08/16/18 at 21:01; Status DC Fluvoxamine Maleate (Luvox) 50 mg QHS PO Last administered on 08/27/18 19:38; Start 08/17/18 at 21:00 Mirtazapine (Remeron) 7.5 mg QHS PO Last administered on 08/17/18 20:09; Start 08/15/18 at 21:00; Stop 08/18/18 at 14:31; Status DC Trazodone HCl (Desyrel) 50 mg PRN QHS PRN PO INSOMNIA, MAY REPEAT X1 Last administered on 08/27/18 21:23; Start 08/15/18 at 19:00 Divalproex Sodium (Depakote Sprinkles) 250 mg BIDWMEALS PO Last administered on 08/21/18 17:11; Start 08/17/18 at 08:00; Stop 08/21/18 at 20:15; Status DC Mirtazapine (Remeron) 15 mg QHS PO Last administered on 08/27/18 19:38; Start 08/18/18 at 21:00 Buspirone HCl (Buspar) 5 mg 0900,1700 PO Last administered on 08/21/18 17:10; Start 08/20/18 at 09:00; Stop 08/21/18 at 19:58; Status DC Docusate Sodium (Colace Solution) 100 mg BID PO Last administered on 08/27/18 19:38; Start 08/20/18 at 21:00 Buspirone HCl (Buspar) 5 mg BID PO Last administered on 2/10/19at 21:08; Start 08/21/18 at 21:00; Stop 08/22/18 at 23:37; Status DC Buspirone HCl (Buspar) 10 mg BID PO Last administered on 08/27/18at 19:38; Start 08/23/18 at 09:00 Oxcarbazepine (Trileptal) 150 mg BID PO Last administered on 08/27/18at 19:38; Start 08/24/18 at 21:00 Trazodone HCl (Desyrel) 12.5 mg 0900,1300 PO Last administered on 08/27/18at 12: 51; Start 08/26/18 at 09:00 Levothyroxine Sodium (Synthroid) 50 mcg DAILY06 PO Last administered on at 05:25; Start 08/27/18 at 06:00 Active Scripts Active Reported Zyprexa Zydis (Olanzapine) 5 Mg Tab.rapdis 2.5 Mg PO PRN Q2HR PRN Seroquel (Quetiapine Fumarate) 25 Mg Tablet 1 Tab PO TID PRN Zyprexa (Olanzapine) 2.5 Mg Tablet 1 Tab PO BID PRN Zyprexa (Olanzapine) 5 Mg Tablet 1 Tab PO QHS Namenda (Memantine Hcl) 10 Mg Tablet 1 Tab PO BID Fluoxetine Hcl 40 Mg Capsule 1 Cap PO DAILYWBKFT Depakote Sprinkle (Divalproex Sodium) 125 Mg Cap.sprink 125 Mg PO TID I have reviewed the current psychotropics carefully including drug interactions. Risk benefit ratio favors no change other than as noted in my dictated progress note. Diagnosis: Problems: (1) Anxiety disorder (2) Alcohol-induced persisting dementia (3) Dementia in Alzheimer's disease with delusions (4) Dementia in Alzheimer's disease with depression (5) Dementia, vascular, with delusions (6) Dementia, vascular, with depression (7) Impulse control disorder MELECIO PEREZ MD Aug 27, 2018 22:33
[2018-08-28] MEDS: LEVOTHYROXINE 50 MCG TABLET PO SCH (06:26)
[2018-08-28 06:42] VITALS: BP 111/75
[2018-08-28] MEDS: busPIRone 5 MG TABLET. PO SCH ×2 (08:16→19:16)
[2018-08-28] MEDS: DOCUSATE 100 MG/10 ML SOLUTION. PO SCH ×2 (08:16→19:16)
[2018-08-28] MEDS: OXcarbazepine 150 MG TABLET. PO SCH ×2 (08:16→19:16)
[2018-08-28] MEDS: traZODone 50 MG TABLET. PO SCH ×2 (08:16→11:40)
[2018-08-28] MEDS: MEMANTINE 10 MG TABLET. PO SCH ×2 (08:16→19:16)
[2018-08-28 16:02] VITALS: BP 111/69
[2018-08-28] MEDS: OLANZapine 5 MG TABLET PO SCH (19:16)
[2018-08-28] MEDS: MIRTAZAPINE 15 MG TABLET PO SCH (19:16)
[2018-08-28] MEDS: traZODone 50 MG TABLET. PO PRN (19:31)
[2018-08-28 19:33] LABS: BASO # 0.1 x10^3/uL (0.0-0.2); BASO % 1 % (0-3); EOS # 1.2 x10^3/uL (0.0-0.7); EOS % 9 % (0-3); HEMATOCRIT 44.5 % (39.0-53.0); HEMOGLOBIN 13.9 g/dL (13.0-17.5); LYMPH # 0.8 x10^3/uL (1.0-4.8); LYMPH % 6 % (24-48); MEAN CORPUSCULAR HEMOGLOBIN 30 pg (25-35); MEAN CORPUSCULAR HGB CONC 31 g/dL (31-37); MEAN CORPUSCULAR VOLUME 94 fL (79-100); MONO # 0.9 x10^3/uL (0.0-1.1); MONO % 7 % (0-9); NEUT # 9.8 x10^3uL (1.8-7.7); NEUT % 77 % (31-73); PLATELET COUNT 313 x10^3/uL (140-400); RED BLOOD COUNT 4.72 x10^6/uL (4.30-5.70); RED CELL DISTRIBUTION WIDTH 14.3 % (11.5-14.5); WHITE BLOOD COUNT 12.7 x10^3/uL (4.0-11.0)
[2018-08-28 19:44] LABS: ALBUMIN 3.1 g/dL (3.4-5.0); ALBUMIN/GLOBULIN RATIO 0.8 (1.0-1.7); CALCIUM 9.5 mg/dL (8.5-10.1); CREATININE 2.4 mg/dL (0.7-1.3); GFR 27.8; POTASSIUM 3.9 mmol/L (3.5-5.1); TOTAL BILIRUBIN 0.8 mg/dL (0.2-1.0)
[2018-08-28] MEDS ORDERED: ACET325T9 PO (21:44)
[2018-08-28] MEDS ORDERED: LEVO50TA5 PO (21:45)
[2018-08-28] MEDS ORDERED: MAG355OR17 PO (21:45)
[2018-08-28] MEDS ORDERED: DOCU50LI12 PO (21:45)
[2018-08-28] MEDS ORDERED: METH29OI TP (21:46)
[2018-08-28] MEDS ORDERED: MAGN2400 PO (21:46)
[2018-08-28] MEDS ORDERED: MIRT15TA3 PO (21:46)
[2018-08-28] MEDS ORDERED: OXCA150T3 PO (21:47)
--- NOTE | 2018-08-28 21:47 | PDOC ---
Exam Note: Idris Note: Please also refer to the separate dictated note~for this date of service dictated separately.~Patient seen individually. Discussed the patient with Nursing staff reviewed the chart.~Reviewed interim history and current functioning. Reviewed vital signs,~Labs/ Radiology~and current medications noted below. Continue current treatment with the changes noted in the dictated addendum note Assessment: Vital Signs: Vital Signs Date Time Temp Pulse Resp B/P (MAP) Pulse Ox O2 Delivery O2 Flow Rate FiO2 08/28/18 16:02 98.0 67 16 111/69 (83) 95 08/27/18 16:35 Room Air I&O Intake and Output 08/28/18 07:00 Intake Total 240 ml Balance 240 ml Intake Oral 240 ml # Voids 1 Labs: Laboratory Tests Test 08/28/18 17:20 White Blood Count 12.7 x10^3/uL (4.0-11.0) H Red Blood Count 4.72 x10^6/uL (4.30-5.70) Hemoglobin 13.9 g/dL (13.0-17.5) Hematocrit 44.5 % (39.0-53.0) Mean Corpuscular Volume 94 fL (79-100) Mean Corpuscular Hemoglobin 30 pg (25-35) Mean Corpuscular Hemoglobin Concent 31 g/dL (31-37) Red Cell Distribution Width 14.3 % (11.5-14.5) Platelet Count 313 x10^3/uL (140-400) Neutrophils (%) (Auto) 77 % (31-73) H Lymphocytes (%) (Auto) 6 % (24-48) L Monocytes (%) (Auto) 7 % (0-9) Eosinophils (%) (Auto) 9 % (0-3) H Basophils (%) (Auto) 1 % (0-3) Neutrophils # (Auto) 9.8 x10^3uL (1.8-7.7) H Lymphocytes # (Auto) 0.8 x10^3/uL (1.0-4.8) L Monocytes # (Auto) 0.9 x10^3/uL (0.0-1.1) Eosinophils # (Auto) 1.2 x10^3/uL (0.0-0.7) H Basophils # (Auto) 0.1 x10^3/uL (0.0-0.2) Sodium Level 164 mmol/L (136-145) *H Potassium Level 3.9 mmol/L (3.5-5.1) Chloride Level 123 mmol/L (98-107) H Carbon Dioxide Level 34 mmol/L (21-32) H Anion Gap 7 (6-14) Blood Urea Nitrogen 67 mg/dL (8-26) H Creatinine 2.4 mg/dL (0.7-1.3) H Estimated GFR (Cockcroft-Gault) 27.8 BUN/Creatinine Ratio 28 (6-20) H Glucose Level 136 mg/dL (70-99) H Calcium Level 9.5 mg/dL (8.5-10.1) Total Bilirubin 0.8 mg/dL (0.2-1.0) Aspartate Amino Transferase (AST) 33 U/L (15-37) Alanine Aminotransferase (ALT) 83 U/L (16-63) H Alkaline Phosphatase 87 U/L (46-116) Total Protein 7.0 g/dL (6.4-8.2) Albumin 3.1 g/dL (3.4-5.0) L Albumin/Globulin Ratio 0.8 (1.0-1.7) L Current Medications: Meds: Current Medications Acetaminophen (Tylenol) 650 mg PRN Q6HRS PRN PO PAIN / TEMP; Start 08/14/18 at 17:45 Multi-Ingredient Ointment (Analgesic [place]) 1 emma PRN QID PRN TP MUSCLE PAIN; Start 08/14/18 at 17:45 Al Hydroxide/Mg Hydroxide (Mylanta Plus Xs) 15 ml PRN AFTMEALHC PRN PO DYSPEPSIA; Start 08/14/18 at 17:45 Magnesium Hydroxide (Milk Of Magnesia) 2,400 mg PRN QHS PRN PO CONSTIPATION Last administered on 08/25/18at 01:37; Start 08/14/18 at 17:45 Olanzapine (ZyPREXA ZYDIS) 2.5 mg PRN Q2HR PRN PO ANXIETY / AGITATION 1ST CHOICE Last administered on 08/27/18at 21:23; Start 08/14/18 at 18:00 Divalproex Sodium (Depakote Sprinkles) 125 mg TID PO Last administered on at 13:57; Start 08/14/18 at 21:00; Stop 08/16/18 at 16:47; Status DC Fluoxetine HCl (PROzac) 40 mg DAILY PO ; Start 08/15/18 at 09:00; Stop 08/15/18 at 09:00; Status DC Memantine (Namenda) 10 mg BID PO Last administered on 08/28/18 19:16; Start at 21:00 Olanzapine (ZyPREXA) 2.5 mg PRN BID PRN PO PSYCHOSIS/AGITATION; Start 08/14/18 at 18:30; Stop 08/20/18 at 19:35; Status DC Olanzapine (ZyPREXA) 5 mg QHS PO Last administered on 08/28/18 19:16; Start at 21:00 Quetiapine Fumarate (SEROquel) 25 mg PRN TID PRN PO ANXIETY/AGITATION 2ND CHOICE Last administered on 08/16/18at 23:53; Start 08/14/18 at 18:30; Stop at 18:47; Status DC Fluvoxamine Maleate (Luvox) 25 mg QHS PO Last administered on 08/16/18 21:20; Start 08/14/18 at 21:00; Stop 08/16/18 at 21:01; Status DC Fluvoxamine Maleate (Luvox) 50 mg QHS PO Last administered on 08/28/18 19:16; Start 08/17/18 at 21:00 Mirtazapine (Remeron) 7.5 mg QHS PO Last administered on 08/17/18 20:09; Start 08/15/18 at 21:00; Stop 08/18/18 at 14:31; Status DC Trazodone HCl (Desyrel) 50 mg PRN QHS PRN PO INSOMNIA, MAY REPEAT X1 Last administered on 08/28/18 19:31; Start 08/15/18 at 19:00 Divalproex Sodium (Depakote Sprinkles) 250 mg BIDWMEALS PO Last administered on 08/21/18 17:11; Start 08/17/18 at 08:00; Stop 08/21/18 at 20:15; Status DC Mirtazapine (Remeron) 15 mg QHS PO Last administered on 08/28/18 19:16; Start 08/18/18 at 21:00 Buspirone HCl (Buspar) 5 mg 0900,1700 PO Last administered on 08/21/18 17:10; Start 08/20/18 at 09:00; Stop 08/21/18 at 19:58; Status DC Docusate Sodium (Colace Solution) 100 mg BID PO Last administered on 08/28/18 19:16; Start 08/20/18 at 21:00 Buspirone HCl (Buspar) 5 mg BID PO Last administered on 08/22/18 21:08; Start 08/21/18 at 21:00; Stop 08/22/18 at 23:37; Status DC Buspirone HCl (Buspar) 10 mg BID PO Last administered on 08/28/18 19:16; Start 08/23/18 at 09:00 Oxcarbazepine (Trileptal) 150 mg BID PO Last administered on 08/28/18 19:16; Start 08/24/18 at 21:00 Trazodone HCl (Desyrel) 12.5 mg 0900,1300 PO Last administered on 08/28/18 11: 40; Start 08/26/18 at 09:00 Levothyroxine Sodium (Synthroid) 50 mcg DAILY06 PO Last administered on 06:26; Start 08/27/18 at 06:00 Active Scripts Active Reported Mirtazapine 15 Mg Tablet 15 Mg PO HS Analgesic [place] (Methyl Salicylate/Menthol) 28 Gm Oint...g. 1 Emma TP PRN QID PRN Milk Of Magnesia (Magnesium Hydroxide) 2,400 Mg/10 Ml Oral.susp 2,400 Mg PO PRN QHS PRN Advanced Antacid Liquid (Mag Hydrox/Al Hydrox/Simeth) 355 Ml Oral.susp 15 Ml PO PRN AFTMEALHC PRN Levothyroxine Sodium 50 Mcg Tablet 50 Mcg PO DAILYAC Docu Liquid (Docusate Sodium) 50 Mg/5 Ml Liquid 100 Mg PO BID Tylenol (Acetaminophen) 325 Mg Tablet 650 Mg PO PRN Q6HRS PRN Zyprexa Zydis (Olanzapine) 5 Mg Tab.rapdis 2.5 Mg PO PRN Q2HR PRN Seroquel (Quetiapine Fumarate) 25 Mg Tablet 1 Tab PO TID PRN Zyprexa (Olanzapine) 2.5 Mg Tablet 1 Tab PO BID PRN Zyprexa (Olanzapine) 5 Mg Tablet 1 Tab PO QHS Namenda (Memantine Hcl) 10 Mg Tablet 1 Tab PO BID Fluoxetine Hcl 40 Mg Capsule 1 Cap PO DAILYWBKFT Depakote Sprinkle (Divalproex Sodium) 125 Mg Cap.sprink 125 Mg PO TID I have reviewed the current psychotropics carefully including drug interactions. Risk benefit ratio favors no change other than as noted in my dictated progress note. Diagnosis: Problems: (1) Anxiety disorder (2) Alcohol-induced persisting dementia (3) Dementia in Alzheimer's disease with delusions (4) Dementia in Alzheimer's disease with depression (5) Dementia, vascular, with delusions (6) Dementia, vascular, with depression (7) Impulse control disorder MELECIO PEREZ MD Aug 28, 2018 21:47
[2018-08-28] MEDS ORDERED: BUSP10TA PO (21:48)
[2018-08-28] MEDS ORDERED: FLUV50TA2 PO (21:48)
[2018-08-28] MEDS ORDERED: TRAZ-85 PO ×2 (21:49)
[2018-08-29] MEDS: LEVOTHYROXINE 50 MCG TABLET PO SCH ×2 (05:10→06:00)
[2018-08-29 05:48] VITALS: BP 113/68
[2018-08-29] MEDS: MEMANTINE 10 MG TABLET. PO SCH ×2 (08:07→19:45)
[2018-08-29] MEDS: busPIRone 5 MG TABLET. PO SCH ×2 (08:07→19:44)
[2018-08-29] MEDS: DOCUSATE 100 MG/10 ML SOLUTION. PO SCH ×2 (08:07→19:45)
[2018-08-29] MEDS: OXcarbazepine 150 MG TABLET. PO SCH ×2 (08:07→19:45)
[2018-08-29] MEDS: traZODone 50 MG TABLET. PO SCH ×2 (08:08→11:09)
[2018-08-29] MEDS ORDERED: MORPHINE SULFATE 2 MG/ML DISP.SYRIN. IV PRN (14:30)
[2018-08-29] MEDS ORDERED: MORPHINE SULFATE 2 MG/ML DISP.SYRIN. IM PRN (14:35)
[2018-08-29 16:09] VITALS: BP 112/74
[2018-08-29] MEDS: OLANZapine 5 MG TABLET PO SCH (19:45)
[2018-08-29] MEDS: MIRTAZAPINE 15 MG TABLET PO SCH (19:45)
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
--- NOTE | 2018-08-29 22:33 | PDOC ---
Exam Note: Idris Note: Please also refer to the separate dictated note~for this date of service dictated separately.~Patient seen individually. Discussed the patient with Nursing staff reviewed the chart.~Reviewed interim history and current functioning. Reviewed vital signs,~Labs/ Radiology~and current medications noted below. Continue current treatment with the changes noted in the dictated addendum note Assessment: Vital Signs: Vital Signs Date Time Temp Pulse Resp B/P (MAP) Pulse Ox O2 Delivery O2 Flow Rate FiO2 08/29/18 16:09 98.4 72 16 112/74 (87) 93 08/27/18 16:35 Room Air I&O Intake and Output 08/29/18 07:00 Intake Total 440 ml Balance 440 ml Intake Oral 440 ml Current Medications: Meds: Current Medications Acetaminophen (Tylenol) 650 mg PRN Q6HRS PRN PO PAIN / TEMP; Start 08/14/18 at 17:45 Multi-Ingredient Ointment (Analgesic [place]) 1 emma PRN QID PRN TP MUSCLE PAIN; Start 08/14/18 at 17:45 Al Hydroxide/Mg Hydroxide (Mylanta Plus Xs) 15 ml PRN AFTMEALHC PRN PO DYSPEPSIA; Start 08/14/18 at 17:45 Magnesium Hydroxide (Milk Of Magnesia) 2,400 mg PRN QHS PRN PO CONSTIPATION Last administered on 08/25/18at 01:37; Start 08/14/18 at 17:45 Olanzapine (ZyPREXA ZYDIS) 2.5 mg PRN Q2HR PRN PO ANXIETY / AGITATION 1ST CHOICE Last administered on 08/27/18at 21:23; Start 08/14/18 at 18:00 Divalproex Sodium (Depakote Sprinkles) 125 mg TID PO Last administered on at 13:57; Start 08/14/18 at 21:00; Stop 08/16/18 at 16:47; Status DC Fluoxetine HCl (PROzac) 40 mg DAILY PO ; Start 08/15/18 at 09:00; Stop 08/15/18 at 09:00; Status DC Memantine (Namenda) 10 mg BID PO Last administered on 08/29/18at 08:07; Start at 21:00 Olanzapine (ZyPREXA) 2.5 mg PRN BID PRN PO PSYCHOSIS/AGITATION; Start 08/14/18 at 18:30; Stop 08/20/18 at 19:35; Status DC Olanzapine (ZyPREXA) 5 mg QHS PO Last administered on 08/28/18 19:16; Start at 21:00 Quetiapine Fumarate (SEROquel) 25 mg PRN TID PRN PO ANXIETY/AGITATION 2ND CHOICE Last administered on 08/16/18 23:53; Start 08/14/18 at 18:30; Stop at 18:47; Status DC Fluvoxamine Maleate (Luvox) 25 mg QHS PO Last administered on 08/16/18 21:20; Start 08/14/18 at 21:00; Stop 08/16/18 at 21:01; Status DC Fluvoxamine Maleate (Luvox) 50 mg QHS PO Last administered on 08/28/18 19:16; Start 08/17/18 at 21:00 Mirtazapine (Remeron) 7.5 mg QHS PO Last administered on 08/17/18 20:09; Start 08/15/18 at 21:00; Stop 08/18/18 at 14:31; Status DC Trazodone HCl (Desyrel) 50 mg PRN QHS PRN PO INSOMNIA, MAY REPEAT X1 Last administered on 08/28/18at 19:31; Start 08/15/18 at 19:00 Divalproex Sodium (Depakote Sprinkles) 250 mg BIDWMEALS PO Last administered on 08/21/18 17:11; Start 08/17/18 at 08:00; Stop 08/21/18 at 20:15; Status DC Mirtazapine (Remeron) 15 mg QHS PO Last administered on 08/28/18 19:16; Start 08/18/18 at 21:00 Buspirone HCl (Buspar) 5 mg 0900,1700 PO Last administered on 08/21/18 17:10; Start 08/20/18 at 09:00; Stop 08/21/18 at 19:58; Status DC Docusate Sodium (Colace Solution) 100 mg BID PO Last administered on 08/29/18at 08:07; Start 08/20/18 at 21:00 Buspirone HCl (Buspar) 5 mg BID PO Last administered on 08/22/18at 21:08; Start 08/21/18 at 21:00; Stop 08/22/18 at 23:37; Status DC Buspirone HCl (Buspar) 10 mg BID PO Last administered on 08/29/18at 08:07; Start 08/23/18 at 09:00 Oxcarbazepine (Trileptal) 150 mg BID PO Last administered on 08/29/18at 08:07; Start 08/24/18 at 21:00 Trazodone HCl (Desyrel) 12.5 mg 0900,1300 PO Last administered on 08/29/18at 08: 08; Start 08/26/18 at 09:00 Levothyroxine Sodium (Synthroid) 50 mcg DAILY06 PO Last administered on at 06:26; Start 08/27/18 at 06:00 Morphine Sulfate (Morphine 2mg Syringe) 4 mg PRN Q4HRS PRN IV PAIN; Start 08/29 at 14:30; Stop 08/29/18 at 14:35; Status DC Morphine Sulfate (Morphine 2mg Syringe) 4 mg PRN Q4HRS PRN IM PAIN; Start 08/29 at 14:35 Active Scripts Active Reported Trazodone Hcl 50 Mg Tablet 12.5 Mg PO BIDACBL Trazodone Hcl 50 Mg Tablet 50 Mg PO PRN QHS PRN Fluvoxamine Maleate 50 Mg Tablet 50 Mg PO HS Buspirone Hcl 10 Mg Tablet 10 Mg PO BID Trileptal (Oxcarbazepine) 150 Mg Tablet 150 Mg PO BID Mirtazapine 15 Mg Tablet 15 Mg PO HS Analgesic [place] (Methyl Salicylate/Menthol) 28 Gm Oint...g. 1 Emma TP PRN QID PRN Milk Of Magnesia (Magnesium Hydroxide) 2,400 Mg/10 Ml Oral.susp 2,400 Mg PO PRN QHS PRN Advanced Antacid Liquid (Mag Hydrox/Al Hydrox/Simeth) 355 Ml Oral.susp 15 Ml PO PRN AFTMEALHC PRN Levothyroxine Sodium 50 Mcg Tablet 50 Mcg PO DAILYAC Docu Liquid (Docusate Sodium) 50 Mg/5 Ml Liquid 100 Mg PO BID Tylenol (Acetaminophen) 325 Mg Tablet 650 Mg PO PRN Q6HRS PRN Zyprexa Zydis (Olanzapine) 5 Mg Tab.rapdis 2.5 Mg PO PRN Q2HR PRN Seroquel (Quetiapine Fumarate) 25 Mg Tablet 1 Tab PO TID PRN Zyprexa (Olanzapine) 2.5 Mg Tablet 1 Tab PO BID PRN Zyprexa (Olanzapine) 5 Mg Tablet 1 Tab PO QHS Namenda (Memantine Hcl) 10 Mg Tablet 1 Tab PO BID Fluoxetine Hcl 40 Mg Capsule 1 Cap PO DAILYWBKFT Depakote Sprinkle (Divalproex Sodium) 125 Mg Cap.sprink 125 Mg PO TID I have reviewed the current psychotropics carefully including drug interactions. Risk benefit ratio favors no change other than as noted in my dictated progress note. Diagnosis: Problems: (1) Anxiety disorder (2) Alcohol-induced persisting dementia (3) Dementia in Alzheimer's disease with delusions (4) Dementia in Alzheimer's disease with depression (5) Dementia, vascular, with delusions (6) Dementia, vascular, with depression (7) Impulse control disorder MELECIO PEREZ MD Aug 29, 2018 22:33
[2018-08-30 01:15] VITALS: BP 101/72
[2018-08-30 03:40] VITALS: BP 116/71
[2018-08-30] MEDS: LEVOTHYROXINE 50 MCG TABLET PO SCH (05:58)
[2018-08-30 06:10] VITALS: BP 106/62
[2018-08-30] MEDS: DOCUSATE 100 MG/10 ML SOLUTION. PO SCH ×2 (09:00→21:00)
[2018-08-30] MEDS: traZODone 50 MG TABLET. PO SCH ×2 (09:00→13:00)
[2018-08-30] MEDS: MEMANTINE 10 MG TABLET. PO SCH ×2 (09:00→21:00)
[2018-08-30] MEDS: OXcarbazepine 150 MG TABLET. PO SCH ×2 (09:00→21:00)
[2018-08-30] MEDS: busPIRone 5 MG TABLET. PO SCH ×2 (09:00→21:00)
[2018-08-30 16:16] VITALS: BP 125/73
--- NOTE | 2018-08-30 20:27 | RAD ---
AP and lateral bilateral hip radiographs to include an AP pelvis radiograph 08/30/2018 CLINICAL HISTORY: Fall with pelvic and hip pain. Inability to ambulate. A portable AP digital radiograph of the pelvis to include both hips was obtained. AP and lateral digital radiographs of both hips were obtained. There is diffuse osteopenia of the visualized bony structures. No pelvic bone fracture is seen.. No fracture or dislocation of either hip is seen. Mild to moderate degenerative changes are seen involving both hips. A moderate amount of stool is seen throughout the colon. IMPRESSION: No fracture or dislocation is seen. Electronically signed by: Maury Alcaraz MD (08/30/2018 8:24 PM) [facility]
[2018-08-30] MEDS: MIRTAZAPINE 15 MG TABLET PO SCH (21:00)
[2018-08-30] MEDS: OLANZapine 5 MG TABLET PO SCH (21:00)
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
--- NOTE | 2018-08-31 20:21 | PN ---
DATE: 08/29/2018 PSYCHIATRIC PROGRESS NOTE This late entry 08/29/2018 covers elements not covered in my initial note. SUBJECTIVE: I met with the patient in the evening. The patient slept 7-1/2 hours previous night. He has been withdrawn. Sodium is elevated at 160, deferred to Dr. Gaitan, but the family does not want to pursue any active interventions, having decided on hospice care post-discharge. He has been less aggressive, not in the [facility]. REVIEW OF SYSTEMS: No CV, , pulmonary, eye, ENT system symptoms on review. Reliability poor. MENTAL STATUS EXAM: Oriented to himself. Insight, judgment, recent and remote memory, attention, concentration, fund of knowledge poor, consistent with his diagnosis mentioned in my initial note. FINAL DIAGNOSES: Major neurocognitive disorder, Alzheimer, vascular with delusion, depression, behavioral disturbance; anxiety disorder, unspecified; impulse control disorder, unspecified; dehydration, generalized medical deterioration. PLAN: No change from initial note. MAN Maribel PEREZ MD DR: DIANA/ethan JOB#: [id number] / [id number]
--- NOTE | 2018-08-31 22:20 | PDOC ---
Exam Note: Idris Note: Please also refer to the separate dictated note~for this date of service dictated separately.~Patient seen individually. Discussed the patient with Nursing staff reviewed the chart.~Reviewed interim history and current functioning. Reviewed vital signs,~Labs/ Radiology~and current medications noted below. Continue current treatment with the changes noted in the dictated addendum note Assessment: Vital Signs: Vital Signs Date Time Temp Pulse Resp B/P (MAP) Pulse Ox O2 Delivery O2 Flow Rate FiO2 08/30/18 16:16 100.4 76 16 125/73 (90) 96 2.0 08/30/18 01:15 Nasal Cannula I&O Intake and Output 08/31/18 07:00 Intake Total 240 ml Balance 240 ml Intake Oral 240 ml Current Medications: Meds: Current Medications Acetaminophen (Tylenol) 650 mg PRN Q6HRS PRN PO PAIN / TEMP; Start 08/14/18 at 17:45; Stop 08/30/18 at 22:12; Status DC Multi-Ingredient Ointment (Analgesic [place]) 1 emma PRN QID PRN TP MUSCLE PAIN; Start 08/14/18 at 17:45; Stop 08/30/18 at 22:12; Status DC Al Hydroxide/Mg Hydroxide (Mylanta Plus Xs) 15 ml PRN AFTMEALHC PRN PO DYSPEPSIA; Start 08/14/18 at 17:45; Stop 08/30/18 at 22:12; Status DC Magnesium Hydroxide (Milk Of Magnesia) 2,400 mg PRN QHS PRN PO CONSTIPATION Last administered on 08/25/18at 01:37; Start 08/14/18 at 17:45; Stop 08/30/18 at 22:12; Status DC Olanzapine (ZyPREXA ZYDIS) 2.5 mg PRN Q2HR PRN PO ANXIETY / AGITATION 1ST CHOICE Last administered on 08/27/18at 21:23; Start 08/14/18 at 18:00; Stop at 22:12; Status DC Divalproex Sodium (Depakote Sprinkles) 125 mg TID PO Last administered on at 13:57; Start 08/14/18 at 21:00; Stop 08/16/18 at 16:47; Status DC Fluoxetine HCl (PROzac) 40 mg DAILY PO ; Start 08/15/18 at 09:00; Stop 08/15/18 at 09:00; Status DC Memantine (Namenda) 10 mg BID PO Last administered on 08/29/18at 08:07; Start at 21:00; Stop 08/30/18 at 22:12; Status DC Olanzapine (ZyPREXA) 2.5 mg PRN BID PRN PO PSYCHOSIS/AGITATION; Start 08/14/18 at 18:30; Stop 08/20/18 at 19:35; Status DC Olanzapine (ZyPREXA) 5 mg QHS PO Last administered on 08/28/18 19:16; Start at 21:00; Stop 08/30/18 at 22:12; Status DC Quetiapine Fumarate (SEROquel) 25 mg PRN TID PRN PO ANXIETY/AGITATION 2ND CHOICE Last administered on 08/16/18at 23:53; Start 08/14/18 at 18:30; Stop at 18:47; Status DC Fluvoxamine Maleate (Luvox) 25 mg QHS PO Last administered on 08/16/18at 21:20; Start 08/14/18 at 21:00; Stop 08/16/18 at 21:01; Status DC Fluvoxamine Maleate (Luvox) 50 mg QHS PO Last administered on 08/30/18at 21:00; Start 08/17/18 at 21:00; Stop 08/30/18 at 22:12; Status DC Mirtazapine (Remeron) 7.5 mg QHS PO Last administered on 08/17/18at 20:09; Start 08/15/18 at 21:00; Stop 08/18/18 at 14:31; Status DC Trazodone HCl (Desyrel) 50 mg PRN QHS PRN PO INSOMNIA, MAY REPEAT X1 Last administered on 08/28/18at 19:31; Start 08/15/18 at 19:00; Stop 08/30/18 at 22:12 ; Status DC Divalproex Sodium (Depakote Sprinkles) 250 mg BIDWMEALS PO Last administered on 08/21/18at 17:11; Start 08/17/18 at 08:00; Stop 08/21/18 at 20:15; Status DC Mirtazapine (Remeron) 15 mg QHS PO Last administered on 08/28/18 19:16; Start 08/18/18 at 21:00; Stop 08/30/18 at 22:12; Status DC Buspirone HCl (Buspar) 5 mg 0900,1700 PO Last administered on 08/21/18at 17:10; Start 08/20/18 at 09:00; Stop 08/21/18 at 19:58; Status DC Docusate Sodium (Colace Solution) 100 mg BID PO Last administered on 08/29/18at 08:07; Start 08/20/18 at 21:00; Stop 08/30/18 at 22:12; Status DC Buspirone HCl (Buspar) 5 mg BID PO Last administered on 08/22/18at 21:08; Start 08/21/18 at 21:00; Stop 08/22/18 at 23:37; Status DC Buspirone HCl (Buspar) 10 mg BID PO Last administered on 08/29/18at 08:07; Start 08/23/18 at 09:00; Stop 08/30/18 at 22:12; Status DC Oxcarbazepine (Trileptal) 150 mg BID PO Last administered on 08/29/18at 08:07; Start 08/24/18 at 21:00; Stop 08/30/18 at 22:12; Status DC Trazodone HCl (Desyrel) 12.5 mg 0900,1300 PO Last administered on 08/29/18at 08: 08; Start 08/26/18 at 09:00; Stop 08/30/18 at 22:12; Status DC Levothyroxine Sodium (Synthroid) 50 mcg DAILY06 PO Last administered on at 05:58; Start 08/27/18 at 06:00; Stop 08/30/18 at 22:12; Status DC Morphine Sulfate (Morphine 2mg Syringe) 4 mg PRN Q4HRS PRN IV PAIN; Start 08/29 at 14:30; Stop 08/29/18 at 14:35; Status DC Morphine Sulfate (Morphine 2mg Syringe) 4 mg PRN Q4HRS PRN IM PAIN Last administered on 08/30/18at 13:02; Start 2/17/19 at 14:35; Stop 08/30/18 at 22:12 ; Status DC Active Scripts Active Reported Trazodone Hcl 50 Mg Tablet 12.5 Mg PO BIDACBL Trazodone Hcl 50 Mg Tablet 50 Mg PO PRN QHS PRN Fluvoxamine Maleate 50 Mg Tablet 50 Mg PO HS Buspirone Hcl 10 Mg Tablet 10 Mg PO BID Trileptal (Oxcarbazepine) 150 Mg Tablet 150 Mg PO BID Mirtazapine 15 Mg Tablet 15 Mg PO HS Analgesic [place] (Methyl Salicylate/Menthol) 28 Gm Oint...g. 1 Emma TP PRN QID PRN Milk Of Magnesia (Magnesium Hydroxide) 2,400 Mg/10 Ml Oral.susp 2,400 Mg PO PRN QHS PRN Advanced Antacid Liquid (Mag Hydrox/Al Hydrox/Simeth) 355 Ml Oral.susp 15 Ml PO PRN AFTMEALHC PRN Levothyroxine Sodium 50 Mcg Tablet 50 Mcg PO DAILYAC Docu Liquid (Docusate Sodium) 50 Mg/5 Ml Liquid 100 Mg PO BID Tylenol (Acetaminophen) 325 Mg Tablet 650 Mg PO PRN Q6HRS PRN Zyprexa Zydis (Olanzapine) 5 Mg Tab.rapdis 2.5 Mg PO PRN Q2HR PRN Seroquel (Quetiapine Fumarate) 25 Mg Tablet 1 Tab PO TID PRN Zyprexa (Olanzapine) 2.5 Mg Tablet 1 Tab PO BID PRN Zyprexa (Olanzapine) 5 Mg Tablet 1 Tab PO QHS Namenda (Memantine Hcl) 10 Mg Tablet 1 Tab PO BID Fluoxetine Hcl 40 Mg Capsule 1 Cap PO DAILYWBKFT Depakote Sprinkle (Divalproex Sodium) 125 Mg Cap.sprink 125 Mg PO TID I have reviewed the current psychotropics carefully including drug interactions. Risk benefit ratio favors no change other than as noted in my dictated progress note. Diagnosis: Problems: (1) Lewy body dementia (2) Hypernatremia (3) Anxiety disorder (4) Alcohol-induced persisting dementia (5) Dementia in Alzheimer's disease with delusions (6) Dementia in Alzheimer's disease with depression (7) Dementia, vascular, with delusions (8) Dementia, vascular, with depression (9) Impulse control disorder MELECIO PEREZ MD Aug 31, 2018 22:20
== END 2018-08-30 22:11 | disposition short-term general hospital (02) | DRG 57 ==
LOC: GEROPSY 16:23
PROVIDERS: ADMIT Psychiatry & Neurology Psychiatry; ATTEND Psychiatry & Neurology Psychiatry
DX: G30.9 Alzheimer's disease, unspecified (principal); F01.51 Vascular dementia, unspecified severity, with behavioral disturbance; F10.27 Alcohol dependence with alcohol-induced persisting dementia; F02.81 Dementia in other diseases classified elsewhere, unspecified severity, with behavioral disturbance; E87.0 Hyperosmolality and hypernatremia; F22 Delusional disorders; F63.9 Impulse disorder, unspecified; F32.9 Major depressive disorder, single episode, unspecified; F41.9 Anxiety disorder, unspecified; E78.2 Mixed hyperlipidemia; E86.0 Dehydration; G31.83 Neurocognitive disorder with Lewy bodies; I10 Essential (primary) hypertension; I25.10 Atherosclerotic heart disease of native coronary artery without angina pectoris; K59.00 Constipation, unspecified; J44.9 Chronic obstructive pulmonary disease, unspecified; Z66 Do not resuscitate; Z87.891 Personal history of nicotine dependence; Z85.820 Personal history of malignant melanoma of skin; Z82.1 Family history of blindness and visual loss; Z82.5 Family history of asthma and other chronic lower respiratory diseases; Z79.899 Other long term (current) drug therapy
CPT/HCPCS: 36415; 73521; 80053; 80061; 80164; 82140; 82306; 83036; 83540; 83550; 83735; 84436; 84439; 84443; 84480; 85025; 85610; 86592; J2270

== ENCOUNTER 2018-08-30 22:42 | Inpatient (IN) | payer MEDICARE, BC ==
[~2018-08-30] VITALS: Ht 182.9 cm; Wt 61.9 kg
[~2018-08-30 22:42] MED LIST: ACET325T9 PO; BUSP10TA PO; DIVA125C2 PO; DOCU50LI12 PO; FLUO40CA2 PO; FLUV50TA2 PO; LEVO50TA5 PO; MAG355OR17 PO; MAGN2400 PO; MEMA10TA PO; METH29OI TP; MIRT15TA3 PO; OLAN2.5T3 PO; OLAN5TAB3 PO; OLAN5TAB5 PO; OXCA150T3 PO; QUET25TA5 PO; TRAZ-85 PO
[2018-08-30 22:46] VITALS: BP 106/71
[2018-08-31 05:22] VITALS: BP 96/62
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
--- NOTE | 2018-08-31 14:49 | DS ---
DATE OF DISCHARGE: 08/31/2018 HOSPITAL COURSE: The patient is a 58-year-old male patient with advanced alcohol-induced dementia as well as Lewy body dementia. He has also severe hypernatremia and acute kidney injury. His family opted for palliative and hospice care and declined any aggressive treatment and he was accepted at [facility] and therefore he will be discharged to go on hospice for end of life care. PHYSICAL EXAMINATION: GENERAL: When I saw him this afternoon, he looked well and was clearly in no apparent respiratory distress. No pallor, jaundice, cyanosis, or thyromegaly. No jugular venous distension. No limb edema. VITAL SIGNS: His heart rate was , respiratory rate was 18 and oxygen saturation was 95% on room air. The rest of clinical examination is stable, has not really changed. DISCHARGE MEDICATIONS: He will be discharged to continue on Roxanol 20 mg per 5 mL to take 0.25-1 mL p.o. every 2 hours as needed for shortness of breath and pain, Ativan for Intensol 2 mg per mL to take 0.25-1 mL that is 0.5-2 mg subcu p.o. every 4 hours for anxiety. FINAL DISCHARGE DIAGNOSES: 1. Major neurocognitive disorder secondary to alcohol and Lewy body, Alzheimer, vascular with delusion, depression, behavioral disturbances. 2. Acute kidney injury with hypernatremia. 3. Hypertension. 4. Hyperlipidemia. 5. Chronic obstructive pulmonary disease. 6. Parkinson's disease. 7. Vitamin D deficiency. GINA DAWSON MD DR: ISATU/ethan JOB#: [id number] / [id number]
== END 2018-08-31 15:12 | DRG 683 ==
LOC: 1 SOUTH 22:42
PROVIDERS: ADMIT Internal Medicine; ATTEND Internal Medicine
DX: N17.9 Acute kidney failure, unspecified (principal); E87.0 Hyperosmolality and hypernatremia; E55.9 Vitamin D deficiency, unspecified; E78.5 Hyperlipidemia, unspecified; E86.0 Dehydration; F01.50 Vascular dementia, unspecified severity, without behavioral disturbance, psychotic disturbance, mood disturbance, and anxiety; F02.80 Dementia in other diseases classified elsewhere, unspecified severity, without behavioral disturbance, psychotic disturbance, mood disturbance, and anxiety; F10.97 Alcohol use, unspecified with alcohol-induced persisting dementia; F32.9 Major depressive disorder, single episode, unspecified; G30.9 Alzheimer's disease, unspecified; G31.83 Neurocognitive disorder with Lewy bodies; I10 Essential (primary) hypertension; J44.9 Chronic obstructive pulmonary disease, unspecified; Z51.5 Encounter for palliative care; Z82.1 Family history of blindness and visual loss; Z82.5 Family history of asthma and other chronic lower respiratory diseases; Z85.820 Personal history of malignant melanoma of skin; Z87.891 Personal history of nicotine dependence; Z88.8 Allergy status to other drugs, medicaments and biological substances; Z79.899 Other long term (current) drug therapy
CPT/HCPCS: 36415; 87641